=== PATIENT | female | born 1950 | race Caucasian/White ===

== ENCOUNTER 2018-08-05 15:00 | Outpatient (RCR) | payer MEDICARE, OTHER, SELFPAY ==
[2018-07-30 10:38] VITALS: BP 149/68; PULSE 116; RESP 18; TEMP 34.4; BMI 27.4
--- NOTE | 2018-07-30 11:52 | PCM.WC.HP ---
(1) Decubitus ulcer of left heel, unstageable Status: Acute Current Visit: Yes Code(s): L89.620 - Pressure ulcer of left heel, unstageable (2) Fracture of left foot with delayed healing Status: Acute Current Visit: Yes Code(s): S92.902G - Unspecified fracture of left foot, subsequent encounter for fracture with delayed healing (3) Polymyositis associated with autoimmune disease Status: Acute Current Visit: Yes Code(s): M33.20 - Polymyositis, organ involvement unspecified; M35.9 - Systemic involvement of connective tissue, unspecified (4) Diabetes type 2, controlled Status: Chronic Current Visit: Yes Code(s): E11.9 - Type 2 diabetes mellitus without complications History of Present Illness Date of Service: 07/30/18 Chief Complaint: Follow-up on left heel ulcer History of Wound: 67-year-old white female with an autoimmune disorder is on steroids and plasma infusions fell and injured her left shoulder left upper arm humerus and left foot ankle. The fall occurred May [id number] she finally had surgery on June 142018 with plates and screws in the left ankle area she has been casted 3 times and after the last cast has developed a decubitus ulcer on her left heel from pressure. It is crusted it is clean around the edges it is unstageable at this point but hard not Mushy. Past Medical History Past Medical History: Chronic Problems Diabetes type 2, controlled (Chronic) Past Medical History: Left heel decubitus ulcer Allergies/Adverse Reactions: Allergies Penicillins Allergy (Verified 07/30/18 11:13) Hives Sulfa (Sulfonamide Antibiotics) Allergy (Verified 07/30/18 11:13) Hives Review of Systems Constitutional: Denies: Chills, Fever Eyes: Denies: Blurred vision, Drainage, Pain HEENT: Denies: Difficulty Hearing, Difficulty Swallowing, Sore Throat, Visual Changes Cardiovascular: Denies: Chest Pain, Palpitations, Syncope Respiratory: Denies: Cough, Shortness of Breath Gastrointestinal: Denies: Abdominal Pain, Nausea, Vomiting Genitourinary: Denies: Dysuria, Frequency Musculoskeletal: Denies: Joint Pain, Muscle pain Skin: Reports: - - Scab On left heel. Denies: Jaundice, Rash Neurological: Denies: Balance problems, Change in Speech, Difficulty swallowing, Focal weakness Psychiatric: Denies: Anxiety, Depression Endocrine: Denies: Change in Body Habitus Hematologic/ Lymphatic: Denies: Adenopathy - Physical Exam Vital Signs Temp Pulse Resp BP 93.9 F L 116 H 18 149/68 H 07/30/18 10:38 07/30/18 10:38 07/30/18 10:38 07/30/18 10:38 General: Oriented x3, Cooperative, Well developed HEENT: Atraumatic, PERRLA Oral: Moist Mucosa Neck: Supple, No JVD Lungs: Clear to auscultation, Normal air movement Cardiovascular: Regular rate, Regular Rhythm Abdomen: Bowel Sounds Present, Soft, Non Tender, No Hepato-splenomegaly Extremities: No clubbing, No edema, - - Left heel decubitus ulcer unstageable Wound Measurements and Assessment WC - Nurse 1 - General Ulcer Measurement Start: 07/30/18 10:08 Freq: Status: Active Protocol: Activity Type Activity Date Activity User E-Sign Co-Sign Detail Recorded Client Recorded Date Recorded By Document 07/30/18 10:38 DV [id number] 07/30/18 11:11 DV 07/30/18 10:38 Wound Center Nurse 1 [Ulcer Assessment] #1 left heel -Current Size (cm) - Length 3.2 -Current Size (cm) - Width 3.3 -Current Size (cm) - Depth 0.1 -Total Square Cm 10.56 -Date of Last Picture (Recall this 07/30/18 field) -Photo Taken Yes -Epithelialization None Present -Tunneling No -Undermining/Tunneling No -Classification - Thickness Unclassifiable (Eschar Covered ) -Exudate Amt None Present -Wound Margin Distinct, Outline Attached -Granulation Amt None Present (0 %) -Slough/Fibrin No -Necrosis Amt Large (67-100%) -Necrotic Tissue Type Eschar -Structure Exposed None/Limited to Skin Breakdown -Texture (Deepa-wound Skin Appearance) Assessed Localized Edema -Moisture (Deepa-wound Skin Appearance Assessed ) -Color (Deepa-wound Skin Appearance) Assessed -Temperature (Deepa-wound Skin No Abnormality Appearance) (Pt Warm) -Tenderness on Palpation (Deepa-wound Yes Skin Appearance) -Ulcer Cleansing Rinsed/ Irrigated with Saline -Foul Odor after Cleansing No [Edema Assessment] -Right Calf (cm) 33.5 -Right Ankle (cm) 20.7 -Left Calf (cm) 35.5 -Left Ankle (cm) 22.1 WC - Nurse 2 - General Ulcer CM Notes Start: 07/30/18 10:08 Freq: Status: Active Protocol: Activity Type Activity Date Activity User E-Sign Co-Sign Detail Recorded Client Recorded Date Recorded By Document 07/30/18 11:37 MW [id number] 07/30/18 11:41 MW 07/30/18 11:37 Wound Center Nurse 2 [Procedure/Treatment] #1 left heel -Time 11:38 -Correct Patient Yes -Correct Side, Site, Position Yes -Correct Procedure Yes -Procedure Performed Yes -Type of Procedure Debridement -Clinical Debridement Selective -Post Debridement Size (cm) - Length 2.5 -Post Debridement Size (cm) - Width 2.7 -Post Debridement Size (cm) - Depth 0.1 -Total Square Cm 6.75 -Wound/Ulcer Outcome Not Healed -Ulcer Cleansing Rinsed/ Irrigated with Saline -Foul Odor after Cleansing No -Bioengineered Tissue No -Bleeding Controlled with Pressure -Offloading No -Treatment Response Procedure Tolerated Well [See Physician Procedure note for Specifics] Pain Scale: 0-10 Numeric [Pain] -Is Patient Pain Free? Yes Musculoskeletal: No Tenderness to Palpation of Joints or Extremities Lymphatic: No Cervical, Supraclavicular, or Inguinal Adenopathy Neurological: Cranial nerves II-XII grossly intact, Neuro grossly intact Psych/Mental Status: Normal Affect, Appropriate Debridement Note Post-Debridement Measurements/Treatment WC - Nurse 2 - General Ulcer CM Notes Start: 07/30/18 10:08 Freq: Status: Active Protocol: Activity Type Activity Date Activity User E-Sign Co-Sign Detail Recorded Client Recorded Date Recorded By Document 07/30/18 11:37 MW [id number] 07/30/18 11:41 MW 07/30/18 11:37 Wound Center Nurse 2 #1 left heel -Time 11:38 -Correct Patient Yes -Correct Side, Site, Position Yes -Correct Procedure Yes -Procedure Performed Yes -Type of Procedure Debridement -Clinical Debridement Selective -Post Debridement Size (cm) - Length 2.5 -Post Debridement Size (cm) - Width 2.7 -Post Debridement Size (cm) - Depth 0.1 -Total Square Cm 6.75 -Wound/Ulcer Outcome Not Healed -Ulcer Cleansing Rinsed/ Irrigated with Saline -Foul Odor after Cleansing No -Bioengineered Tissue No -Bleeding Controlled with Pressure -Offloading No -Treatment Response Procedure Tolerated Well Pain Scale: 0-10 Numeric Is Patient Pain Free? Yes No debridement was completed today Assessment/Plan Active Problems Decubitus ulcer of left heel, stage 3 (Acute) Decubitus ulcer of left heel, unstageable (Acute) Fracture of left foot with delayed healing (Acute) Polymyositis associated with autoimmune disease (Acute) Diabetes type 2, controlled (Chronic) Assessment: Decubitus ulcer left heel unstageable. Polymyositis. Fractured left ankle Plan: Keep the heel clean and dry use povidone swabs to the scabbed area every day cover with clean gauze double layer Tubigrip follow-up in 1 week with another provider
[2018-08-05 15:06] VITALS: BP 142/60; PULSE 95; RESP 18; TEMP 36.5; BMI 27.4
--- NOTE | 2018-08-11 10:27 | PCM.WC.PN ---
(1) Decubitus ulcer of left heel, unstageable Status: Acute Code(s): L89.620 - Pressure ulcer of left heel, unstageable (2) Fracture of left foot with delayed healing Status: Acute Code(s): S92.902G - Unspecified fracture of left foot, subsequent encounter for fracture with delayed healing (3) Polymyositis associated with autoimmune disease Status: Acute Code(s): M33.20 - Polymyositis, organ involvement unspecified; M35.9 - Systemic involvement of connective tissue, unspecified (4) Diabetes type 2, controlled Status: Chronic Code(s): E11.9 - Type 2 diabetes mellitus without complications Type of Wound Date of Service: 08/05/18 Chief Complaint: Follow-up on left heel ulcer History of Wound: 67-year-old white female with an autoimmune disorder is on steroids and plasma infusions fell and injured her left shoulder left upper arm humerus and left foot ankle. The fall occurred May 312018 she finally had surgery on June 142018 with plates and screws in the left ankle area she has been casted 3 times and after the last cast has developed a decubitus ulcer on her left heel from pressure. It is crusted it is clean around the edges it is unstageable at this point but hard not Mushy. She denies any signs of infection at this time. The patient otherwise denies any fever, chills, nausea, vomiting, shortness of breath, chest pain or pressure, palpitations, orthopnea, lower extremity edema, syncope or presyncopal episodes. Progress of Wound: Courtesy visit as patient states that her insurance does not allow for her to see a nurse practitioner and she can only see a physician. Her pressure ulcer to her left heel continues to be unstageable and she has been utilizing iodine over the site for the past week. Denies any systemic signs of infection at this time. Site is still hard and necrotic no fluctuance on exam. - Physical Exam Vital Signs Temp Pulse Resp BP 97.7 F L 95 18 142/60 H 08/05/18 15:06 08/05/18 15:06 08/05/18 15:06 08/05/18 15:06 General: Alert, Oriented x3, Cooperative, No apparent distress HEENT: Atraumatic Lungs: Clear to auscultation, Normal air movement, No rhonchi, No wheeze, No rales Cardiovascular: Regular rate, Regular Rhythm Extremities: No clubbing, No cyanosis, Edema - Generalized bilateral lower extremity edema Skin: Ulcer/ Wound - Unstageable pressure ulcer to left heel with necrotic tissue present, no erythema, warmth, or fluctuance noted. Neurological: Neuro grossly intact Psych/Mental Status: Normal Affect, Appropriate, Alert and oriented to time, place, person, mood and affect Debridement Note Post-Debridement Measurements/Treatment WC - Nurse 2 - General Ulcer CM Notes Start: 07/30/18 10:08 Freq: Status: Active Protocol: Activity Type Activity Date Activity User E-Sign Co-Sign Detail Recorded Client Recorded Date Recorded By Document 07/30/18 11:37 MW [id number] 07/30/18 11:41 MW Document 08/05/18 15:32 AN [id number] 08/05/18 15:37 AN 07/30/18 08/05/18 11:37 15:32 Wound Center Nurse 2 #1 left heel -Time 11:38 15:36 -Correct Patient Yes Yes -Correct Side, Site, Position Yes Yes -Correct Procedure Yes No -Procedure Performed Yes No -Type of Procedure Debridement -Clinical Debridement Selective -Post Debridement Size (cm) - Length 2.5 0.1 -Post Debridement Size (cm) - Width 2.7 0.1 -Post Debridement Size (cm) - Depth 0.1 0.1 -Total Square Cm 6.75 0.01 -Wound/Ulcer Outcome Not Healed Not Healed -Ulcer Cleansing Rinsed/ Rinsed/ Irrigated with Irrigated with Saline Saline -Foul Odor after Cleansing No No -Bioengineered Tissue No -Bleeding Controlled with Pressure -Offloading No Yes -Type of Offloading Surgical Shoe -Treatment Response Procedure Tolerated Well Pain Scale: 0-10 Numeric Is Patient Pain Free? Yes Yes Wound debrided: Unstageable pressure ulcer to left heel Laterality: Left Type of Debridement: Excisional debridement Anesthesia Used: 5% Lidocaine Gel Depth: in the subcutaneous layer Percentage of wound debrided: 20 Instrument Used: 3mm curette Tissue Removed: Necrotic tissue around the wound edges debrided, still large amount of necr Amount of bleeding with debridement: Mild Bleeding Controlled with: Pressure Patient tolerated procedure well Necrotic edges surrounding the ulceration debrided, still large amount of hard necrotic tissue present in the center. Santyl was recommended to assist with enzymatic debridement Assessment/Plan Assessment: Decubitus ulcer left heel unstageable. Polymyositis. Fractured left ankle Plan: Keep the heel clean and dry use Santyl daily cover with clean gauze double layer Tubigrip follow-up in 1 week with a physician as per patient she states that her insurance will only cover her to see a physician. Code Visit [id number]: [id number] Marilu subq tissue 20 sq cm/<
== END 2018-08-08 23:59 ==
LOC: WC 15:00
PROVIDERS: PCP Internal Medicine; Visit Provider Nurse Practitioner Family
DX: E11.622 Type 2 diabetes mellitus with other skin ulcer (principal); M33.20 Polymyositis, organ involvement unspecified; M35.9 Systemic involvement of connective tissue, unspecified; L89.623 Pressure ulcer of left heel, stage 3
CPT/HCPCS: 97597; 99203; 99213; G0463

== ENCOUNTER 2018-09-02 11:00 | Outpatient (RCR) | payer MEDICARE, OTHER, SELFPAY ==
[2018-08-09 01:42] VITALS: BP 142/60; PULSE 95; RESP 18; TEMP 36.5
[2018-08-12 10:55] VITALS: BP 151/77; PULSE 105; RESP 20; TEMP 36.5; BMI 27.4
--- NOTE | 2018-08-12 12:35 | PN.PCM_ITS ---
(1) Decubitus ulcer of left heel, unstageable Status: Acute Current Visit: No Code(s): L89.620 - Pressure ulcer of left heel, unstageable (2) Delayed wound healing Status: Acute Current Visit: Yes Code(s): T14.8XXD - Other injury of unspecified body region, subsequent encounter (3) Polymyositis associated with autoimmune disease Status: Acute Current Visit: No Code(s): M33.20 - Polymyositis, organ involvement unspecified; M35.9 - Systemic involvement of connective tissue, unspecified (4) Diabetes type 2, controlled Status: Chronic Current Visit: No Code(s): E11.9 - Type 2 diabetes mellitus without complications Type of Wound Chief Complaint: Follow-up on left heel ulcer History of Wound: 67-year-old white female with an autoimmune disorder is on steroids and plasma infusions fell and injured her left shoulder left upper arm humerus and left foot ankle. The fall occurred May [id number] she finally had surgery on June 142018 with plates and screws in the left ankle area she has been casted 3 times and after the last cast has developed a decubitus ulcer on her left heel from pressure. Patient was seen for all of these injuries and surgeries up in [place] and the [facility]. She says she was sent to the wound healing center at request of her primary care physician. Progress of Wound: Ulcer with stable eschar and no surrounding signs of local infection noted to left heel. Patient denies any current feelings of nausea, vomiting, fever, or chills. - Physical Exam Vital Signs Temp Pulse Resp BP 97.7 F L 105 H 20 H 151/77 H 08/12/18 10:55 08/12/18 10:55 08/12/18 10:55 08/12/18 10:55 General: Alert, Oriented x3, Cooperative, No apparent distress Extremities: Capillary Refill Less than 3 Seconds - to distal digits, No Calf Tenderness - negative nura and doyle signs, Diminished Peripheral Pulses - DP pulse palpable and PT pulse nonpalpable, Edema - Minor lower extremity edema Skin: Ulcer/ Wound - Unstageable pressure ulcer with overlying stable eschar to the left posterior heel. There is no bogginess or fluctuance appreciated underlying the eschar at this time. There is no drainage appreciated. There is no surrounding or extending cellulitis or increased warmth to the area or any other signs of local bacterial infection. Wound Measurements and Assessment WC - Nurse 1 - General Ulcer Measurement Start: 08/12/18 10:55 Freq: Status: Active Protocol: Activity Type Activity Date Activity User E-Sign Co-Sign Detail Recorded Client Recorded Date Recorded By Document 08/12/18 10:55 DL [id number] 08/12/18 11:02 DL 08/12/18 10:55 Wound Center Nurse 1 [Ulcer Assessment] #1 left heel -Current Size (cm) - Length 2.5 -Current Size (cm) - Width 2.8 -Current Size (cm) - Depth 0.1 -Total Square Cm 7.00 -Photo Taken No -Exudate Amt None Present -Wound Margin Thickened -Granulation Amt None Present (0 %) -Necrosis Amt Large (67-100%) -Necrotic Tissue Type Eschar -Structure Exposed N/A -Texture (Deepa-wound Skin Appearance) Localized Edema Scarring -Moisture (Deepa-wound Skin Appearance No Abnormality ) -Color (Deepa-wound Skin Appearance) Erythema Rubor -Temperature (Deepa-wound Skin No Abnormality Appearance) (Pt Warm) -Tenderness on Palpation (Deepa-wound Yes Skin Appearance) -Ulcer Cleansing Rinsed/ Irrigated with Saline -Foul Odor after Cleansing No -Anesthetic Used 4% Lidocaine Solution [Edema Assessment] -Left Calf (cm) 32 -Left Ankle (cm) 20 WC - Nurse 2 - General Ulcer CM Notes Start: 08/12/18 10:55 Freq: Status: Active Protocol: Activity Type Activity Date Activity User E-Sign Co-Sign Detail Recorded Client Recorded Date Recorded By Document 08/12/18 12:07 DV [id number] 08/12/18 12:15 DV 08/12/18 12:07 Wound Center Nurse 2 [Procedure/Treatment] #1 left heel -Time 12:08 -Correct Patient Yes -Correct Side, Site, Position Yes -Correct Procedure No -Procedure Performed No -Wound/Ulcer Outcome Not Healed [See Physician Procedure note for Specifics] Pain Scale: 0-10 Numeric [Pain] -Is Patient Pain Free? Yes Musculoskeletal: Tenderness - With manipulation of ulcer site Neurological: Sensory exam intact to light touch and pain Psych/Mental Status: Normal Affect, Appropriate Debridement Note Post-Debridement Measurements/Treatment WC - Nurse 2 - General Ulcer CM Notes Start: 08/12/18 10:55 Freq: Status: Active Protocol: Activity Type Activity Date Activity User E-Sign Co-Sign Detail Recorded Client Recorded Date Recorded By Document 08/12/18 12:07 DV [id number] 08/12/18 12:15 DV 08/12/18 12:07 Wound Center Nurse 2 #1 left heel -Time 12:08 -Correct Patient Yes -Correct Side, Site, Position Yes -Correct Procedure No -Procedure Performed No -Wound/Ulcer Outcome Not Healed Pain Scale: 0-10 Numeric Is Patient Pain Free? Yes No debridement was completed today Assessment/Plan Active Problems Delayed wound healing (Acute) Assessment: Decubitus ulcer left heel unstageable. Polymyositis. Fractured left ankle Plan: Patient was carefully examined and evaluated in great detail. At this time there is a stable eschar overlying the ulcer site. There are currently no signs of infection appreciated as well as no bogginess or fluctuance to the heel. No debridement was completed today. The site was carefully painted with Betadine followed by an offloading dry sterile dressing. The patient is to continue with dressing changes in this manner on a daily basis, in order to keep the area stable and from turning wet. The importance of keeping the left heel offloaded at all times was stressed in great detail with the patient today. She is to be nonweightbearing to the left heel. At all times while seated or laying down the patient is to have the area completely offloaded with nothing by air touching the ulcer site. She says she understands this. LEAS and venous duplex studies were ordered for the patient and we will continue to monitor for those results. We can consider x-rays of the heel in the future if needed. All questions were answered to the patient's satisfaction today. All signs and symptoms of local and systemic infection were discussed with the patient and she was instructed to go to the emergency room immediately should she notice any of these. She is to follow back up at the wound healing center in 1 week to check on progress, but was instructed to follow-up sooner if needed.
[2018-08-19 10:35] VITALS: BP 148/71; PULSE 105; RESP 18; TEMP 36.6; BMI 27.4
--- NOTE | 2018-08-19 13:11 | PCM.WC.PN ---
(1) Decubitus ulcer of left heel, unstageable Status: Acute Current Visit: No Code(s): L89.620 - Pressure ulcer of left heel, unstageable (2) Delayed wound healing Status: Acute Current Visit: Yes Code(s): T14.8XXD - Other injury of unspecified body region, subsequent encounter (3) Polymyositis associated with autoimmune disease Status: Acute Current Visit: No Code(s): M33.20 - Polymyositis, organ involvement unspecified; M35.9 - Systemic involvement of connective tissue, unspecified (4) Diabetes type 2, controlled Status: Chronic Current Visit: No Code(s): E11.9 - Type 2 diabetes mellitus without complications Type of Wound Chief Complaint: Follow-up on left heel ulcer History of Wound: 67-year-old white female with an autoimmune disorder is on steroids and plasma infusions fell and injured her left shoulder left upper arm humerus and left foot ankle. The fall occurred May [id number] she finally had surgery on June 142018 with plates and screws in the left ankle area she has been casted 3 times and after the last cast has developed a decubitus ulcer on her left heel from pressure. Patient was seen for all of these injuries and surgeries up in [place] and the [facility]. She says she was sent to the wound healing center at request of her primary care physician. Progress of Wound: Ulcer stable this week with no surrounding signs of local infection noted to left heel. Patient denies any current feelings of nausea, vomiting, fever, or chills. - Physical Exam Vital Signs Temp Pulse Resp BP 97.8 F 105 H 18 148/71 H 08/19/18 10:35 08/19/18 10:35 08/19/18 10:35 08/19/18 10:35 General: Alert, Oriented x3, Cooperative, No apparent distress Extremities: Capillary Refill Less than 3 Seconds, No Calf Tenderness - Negative Shay and Rankin signs, Diminished Peripheral Pulses - DP pulse palpable and PT pulse nonpalpable, Edema - Minor lower extremity edema Skin: Ulcer/ Wound - Unstageable pressure ulcer with overlying stable eschar to the left posterior heel. There is no bogginess or fluctuance appreciated underlying the eschar at this time. There is no drainage appreciated. There is no surrounding or extending cellulitis or increased warmth to the area or any other signs of local bacterial infection. Wound Measurements and Assessment WC - Nurse 1 - General Ulcer Measurement Start: 08/12/18 10:55 Freq: Status: Active Protocol: Activity Type Activity Date Activity User E-Sign Co-Sign Detail Recorded Client Recorded Date Recorded By Document 08/19/18 10:35 DL [id number] 08/19/18 10:44 DL 08/19/18 10:35 Wound Center Nurse 1 [Ulcer Assessment] #1 left heel -Current Size (cm) - Length 2 -Current Size (cm) - Width 2.8 -Current Size (cm) - Depth 0.1 -Total Square Cm 5.6 -Photo Taken No -Exudate Amt None Present -Wound Margin Thickened -Granulation Amt None Present (0 %) -Necrosis Amt Large (67-100%) -Necrotic Tissue Type Eschar -Structure Exposed N/A -Texture (Deepa-wound Skin Appearance) Localized Edema Scarring -Moisture (Deepa-wound Skin Appearance Dry/Scaly ) -Color (Deepa-wound Skin Appearance) Hemosiderin Staining -Temperature (Deepa-wound Skin No Abnormality Appearance) (Pt Warm) -Tenderness on Palpation (Deepa-wound No Skin Appearance) -Ulcer Cleansing Wound Cleanser -Foul Odor after Cleansing No -Anesthetic Used 5% Lidocaine Gel [Edema Assessment] -Left Calf (cm) 34 -Left Ankle (cm) 20.7 WC - Nurse 2 - General Ulcer CM Notes Start: 08/12/18 10:55 Freq: Status: Active Protocol: Activity Type Activity Date Activity User E-Sign Co-Sign Detail Recorded Client Recorded Date Recorded By Document 08/19/18 11:03 DV [id number] 08/19/18 11:05 DV 08/19/18 11:03 Wound Center Nurse 2 [Procedure/Treatment] #1 left heel -Time 11:03 -Correct Patient Yes -Correct Side, Site, Position Yes -Correct Procedure No -Procedure Performed No -Wound/Ulcer Outcome Not Healed [See Physician Procedure note for Specifics] Pain Scale: 0-10 Numeric [Pain] -Is Patient Pain Free? Yes Musculoskeletal: Tenderness - With manipulation of ulcer site Neurological: Sensory exam intact to light touch and pain Psych/Mental Status: Normal Affect, Appropriate Debridement Note Post-Debridement Measurements/Treatment WC - Nurse 2 - General Ulcer CM Notes Start: 08/12/18 10:55 Freq: Status: Active Protocol: Activity Type Activity Date Activity User E-Sign Co-Sign Detail Recorded Client Recorded Date Recorded By Document 08/12/18 12:07 DV [id number] 08/12/18 12:15 DV Document 08/19/18 11:03 DV [id number] 08/19/18 11:05 DV 08/12/18 08/19/18 12:07 11:03 Wound Center Nurse 2 #1 left heel -Time 12:08 11:03 -Correct Patient Yes Yes -Correct Side, Site, Position Yes Yes -Correct Procedure No No -Procedure Performed No No -Wound/Ulcer Outcome Not Healed Not Healed Pain Scale: 0-10 Numeric Is Patient Pain Free? Yes Yes No debridement was completed today Assessment/Plan Active Problems Delayed wound healing (Acute) Assessment: Decubitus ulcer left heel unstageable. Polymyositis. Fractured left ankle Plan: Patient was carefully examined and evaluated in great detail again today. At this time there is a stable eschar overlying the ulcer site. There are currently no signs of infection appreciated as well as no bogginess or fluctuance to the heel. A tissue nipper was used to carefully remove a very small amount of loosened eschar circumferentially around the ulcer site. No significant debridement performed today. The site was carefully painted with Betadine followed by an offloading dry sterile dressing. The patient is to continue with dressing changes in this manner on a daily basis, in order to keep the area stable and from turning wet. The importance of keeping the left heel offloaded at all times was stressed in great detail with the patient today. She is to be nonweightbearing to the left heel. At all times while seated or laying down the patient is to have the area completely offloaded with nothing by air touching the ulcer site. She says she understands this. LEAS and venous duplex studies were ordered for the patient and we will continue to monitor for those results. She says she had to call to push the studies back due to a conflicting doctor appointment. She says she will call to have this rescheduled. We can consider x-rays of the heel in the future if needed. All questions were answered to the patient's satisfaction today. All signs and symptoms of local and systemic infection were discussed with the patient and she was instructed to go to the emergency room immediately should she notice any of these. She is to follow back up at the wound healing center in 1 week to check on progress, but was instructed to follow-up sooner if needed.
--- NOTE | 2018-08-19 13:14 | PN.PCM_ITS ---
(1) Decubitus ulcer of left heel, unstageable Status: Acute Current Visit: No Code(s): L89.620 - Pressure ulcer of left heel, unstageable (2) Delayed wound healing Status: Acute Current Visit: Yes Code(s): T14.8XXD - Other injury of unspecified body region, subsequent encounter (3) Polymyositis associated with autoimmune disease Status: Acute Current Visit: No Code(s): M33.20 - Polymyositis, organ involvement unspecified; M35.9 - Systemic involvement of connective tissue, unspecified (4) Diabetes type 2, controlled Status: Chronic Current Visit: No Code(s): E11.9 - Type 2 diabetes mellitus without complications Type of Wound Chief Complaint: Follow-up on left heel ulcer History of Wound: 67-year-old white female with an autoimmune disorder is on steroids and plasma infusions fell and injured her left shoulder left upper arm humerus and left foot ankle. The fall occurred May [id number] she finally had surgery on June 142018 with plates and screws in the left ankle area she has been casted 3 times and after the last cast has developed a decubitus ulcer on her left heel from pressure. Patient was seen for all of these injuries and surgeries up in [place] and the [facility]. She says she was sent to the wound healing center at request of her primary care physician. Progress of Wound: Ulcer stable this week with no surrounding signs of local infection noted to left heel. Patient denies any current feelings of nausea, vomiting, fever, or chills. - Physical Exam Vital Signs Temp Pulse Resp BP 97.8 F 105 H 18 148/71 H 08/19/18 10:35 08/19/18 10:35 08/19/18 10:35 08/19/18 10:35 General: Alert, Oriented x3, Cooperative, No apparent distress Extremities: Capillary Refill Less than 3 Seconds, No Calf Tenderness - Negative Shay and Rankin signs, Diminished Peripheral Pulses - DP pulse palpable and PT pulse nonpalpable, Edema - Minor lower extremity edema Skin: Ulcer/ Wound - Unstageable pressure ulcer with overlying stable eschar to the left posterior heel. There is no bogginess or fluctuance appreciated underlying the eschar at this time. There is no drainage appreciated. There is no surrounding or extending cellulitis or increased warmth to the area or any other signs of local bacterial infection. Wound Measurements and Assessment WC - Nurse 1 - General Ulcer Measurement Start: 08/12/18 10:55 Freq: Status: Active Protocol: Activity Type Activity Date Activity User E-Sign Co-Sign Detail Recorded Client Recorded Date Recorded By Document 08/19/18 10:35 DL [id number] 08/19/18 10:44 DL 08/19/18 10:35 Wound Center Nurse 1 [Ulcer Assessment] #1 left heel -Current Size (cm) - Length 2 -Current Size (cm) - Width 2.8 -Current Size (cm) - Depth 0.1 -Total Square Cm 5.6 -Photo Taken No -Exudate Amt None Present -Wound Margin Thickened -Granulation Amt None Present (0 %) -Necrosis Amt Large (67-100%) -Necrotic Tissue Type Eschar -Structure Exposed N/A -Texture (Deepa-wound Skin Appearance) Localized Edema Scarring -Moisture (Deepa-wound Skin Appearance Dry/Scaly ) -Color (Deepa-wound Skin Appearance) Hemosiderin Staining -Temperature (Deepa-wound Skin No Abnormality Appearance) (Pt Warm) -Tenderness on Palpation (Deepa-wound No Skin Appearance) -Ulcer Cleansing Wound Cleanser -Foul Odor after Cleansing No -Anesthetic Used 5% Lidocaine Gel [Edema Assessment] -Left Calf (cm) 34 -Left Ankle (cm) 20.7 WC - Nurse 2 - General Ulcer CM Notes Start: 08/12/18 10:55 Freq: Status: Active Protocol: Activity Type Activity Date Activity User E-Sign Co-Sign Detail Recorded Client Recorded Date Recorded By Document 08/19/18 11:03 DV [id number] 08/19/18 11:05 DV 08/19/18 11:03 Wound Center Nurse 2 [Procedure/Treatment] #1 left heel -Time 11:03 -Correct Patient Yes -Correct Side, Site, Position Yes -Correct Procedure No -Procedure Performed No -Wound/Ulcer Outcome Not Healed [See Physician Procedure note for Specifics] Pain Scale: 0-10 Numeric [Pain] -Is Patient Pain Free? Yes Musculoskeletal: Tenderness - With manipulation of ulcer site Neurological: Sensory exam intact to light touch and pain Psych/Mental Status: Normal Affect, Appropriate Debridement Note Post-Debridement Measurements/Treatment WC - Nurse 2 - General Ulcer CM Notes Start: 08/12/18 10:55 Freq: Status: Active Protocol: Activity Type Activity Date Activity User E-Sign Co-Sign Detail Recorded Client Recorded Date Recorded By Document 08/12/18 12:07 DV [id number] 08/12/18 12:15 DV Document 08/19/18 11:03 DV [id number] 08/19/18 11:05 DV 08/12/18 08/19/18 12:07 11:03 Wound Center Nurse 2 #1 left heel -Time 12:08 11:03 -Correct Patient Yes Yes -Correct Side, Site, Position Yes Yes -Correct Procedure No No -Procedure Performed No No -Wound/Ulcer Outcome Not Healed Not Healed Pain Scale: 0-10 Numeric Is Patient Pain Free? Yes Yes No debridement was completed today Assessment/Plan Active Problems Delayed wound healing (Acute) Assessment: Decubitus ulcer left heel unstageable. Polymyositis. Fractured left ankle Plan: Patient was carefully examined and evaluated in great detail again today. At this time there is a stable eschar overlying the ulcer site. There are currently no signs of infection appreciated as well as no bogginess or fluctuance to the heel. A tissue nipper was used to carefully remove a very small amount of loosened eschar circumferentially around the ulcer site. No significant debridement performed today. The site was carefully painted with Betadine followed by an offloading dry sterile dressing. The patient is to continue with dressing changes in this manner on a daily basis, in order to keep the area stable and from turning wet. The importance of keeping the left heel offloaded at all times was stressed in great detail with the patient today. She is to be nonweightbearing to the left heel. At all times while seated or laying down the patient is to have the area completely offloaded with nothing by air touching the ulcer site. She says she understands this. LEAS and venous duplex studies were ordered for the patient and we will continue to monitor for those results. She says she had to call to push the studies back due to a conflicting doctor appointment. She says she will call to have this rescheduled. We can consider x-rays of the heel in the future if needed. All questions were answered to the patient's satisfaction today. All signs and symptoms of local and systemic infection were discussed with the patient and she was instructed to go to the emergency room immediately should she notice any of these. She is to follow back up at the wound healing center in 1 week to check on progress, but was instructed to follow-up sooner if needed.
[2018-09-02 11:19] VITALS: BP 125/69; PULSE 86; RESP 18; TEMP 36.4; BMI 27.4
--- NOTE | 2018-09-02 13:32 | PCM.WC.PN ---
(1) Decubitus ulcer of left heel, unstageable Status: Acute Current Visit: No Code(s): L89.620 - Pressure ulcer of left heel, unstageable (2) Delayed wound healing Status: Acute Current Visit: Yes Code(s): T14.8XXD - Other injury of unspecified body region, subsequent encounter (3) Polymyositis associated with autoimmune disease Status: Acute Current Visit: No Code(s): M33.20 - Polymyositis, organ involvement unspecified; M35.9 - Systemic involvement of connective tissue, unspecified (4) Diabetes type 2, controlled Status: Chronic Current Visit: No Code(s): E11.9 - Type 2 diabetes mellitus without complications Type of Wound Chief Complaint: Follow-up on left heel ulcer History of Wound: 67-year-old white female with an autoimmune disorder is on steroids and plasma infusions fell and injured her left shoulder left upper arm humerus and left foot ankle. The fall occurred May [id number] she finally had surgery on June 142018 with plates and screws in the left ankle area she has been casted 3 times and after the last cast has developed a decubitus ulcer on her left heel from pressure. Patient was seen for all of these injuries and surgeries up in [place] and the [facility]. She says she was sent to the wound healing center at request of her primary care physician. Progress of Wound: Ulcer stable again this week with no surrounding signs of local infection noted to left heel. Patient denies any current feelings of nausea, vomiting, fever, or chills. - Physical Exam Vital Signs Temp Pulse Resp BP 97.6 F L 86 18 125/69 H 09/02/18 11:19 09/02/18 11:19 09/02/18 11:19 09/02/18 11:19 General: Alert, Oriented x3, Cooperative, No apparent distress Extremities: Capillary Refill Less than 3 Seconds, No Calf Tenderness - Negative Shay and Rankin signs, Diminished Peripheral Pulses - DP pulse palpable and PT pulse nonpalpable, Edema - Minor lower extremity edema Skin: Ulcer/ Wound - Unstageable pressure ulcer with overlying stable eschar to the left posterior heel. There is no bogginess or fluctuance appreciated underlying the eschar at this time. There is no drainage appreciated. There is no surrounding or extending cellulitis or increased warmth to the area or any other signs of local bacterial infection. Wound Measurements and Assessment WC - Nurse 1 - General Ulcer Measurement Start: 08/12/18 10:55 Freq: Status: Active Protocol: Activity Type Activity Date Activity User E-Sign Co-Sign Detail Recorded Client Recorded Date Recorded By Document 09/02/18 11:19 DL [id number] 09/02/18 11:29 DL 09/02/18 11:19 Wound Center Nurse 1 [Ulcer Assessment] #1 left heel -Current Size (cm) - Length 1.7 -Current Size (cm) - Width 2.4 -Current Size (cm) - Depth 0.2 -Total Square Cm 4.08 -Photo Taken No -Exudate Amt None Present -Wound Margin Thickened -Granulation Amt None Present (0 %) -Necrosis Amt Large (67-100%) -Necrotic Tissue Type Eschar -Structure Exposed N/A -Texture (Deepa-wound Skin Appearance) Localized Edema Scarring -Moisture (Deepa-wound Skin Appearance Dry/Scaly ) -Color (Deepa-wound Skin Appearance) Hemosiderin Staining -Temperature (Deepa-wound Skin No Abnormality Appearance) (Pt Warm) -Tenderness on Palpation (Deepa-wound No Skin Appearance) -Ulcer Cleansing Rinsed/ Irrigated with Saline -Foul Odor after Cleansing No -Anesthetic Used 4% Lidocaine Solution [Edema Assessment] -Left Calf (cm) 32.5 -Left Ankle (cm) 19.8 WC - Nurse 2 - General Ulcer CM Notes Start: 08/12/18 10:55 Freq: Status: Active Protocol: Activity Type Activity Date Activity User E-Sign Co-Sign Detail Recorded Client Recorded Date Recorded By Document 09/02/18 12:18 DV [id number] 09/02/18 12:19 DV 09/02/18 12:18 Wound Center Nurse 2 [Procedure/Treatment] #1 left heel -Time 12:19 -Correct Patient Yes -Correct Side, Site, Position Yes -Correct Procedure No -Procedure Performed No -Wound/Ulcer Outcome Not Healed [See Physician Procedure note for Specifics] Pain Scale: 0-10 Numeric [Pain] -Is Patient Pain Free? Yes Musculoskeletal: Tenderness - Some tenderness with manipulation of ulcer site Neurological: Sensory exam intact to light touch and pain Psych/Mental Status: Normal Affect, Appropriate Debridement Note Post-Debridement Measurements/Treatment WC - Nurse 2 - General Ulcer CM Notes Start: 08/12/18 10:55 Freq: Status: Active Protocol: Activity Type Activity Date Activity User E-Sign Co-Sign Detail Recorded Client Recorded Date Recorded By Document 08/12/18 12:07 DV [id number] 08/12/18 12:15 DV Document 08/19/18 11:03 DV [id number] 08/19/18 11:05 DV Document 09/02/18 12:18 DV [id number] 09/02/18 12:19 DV 08/12/18 08/19/18 09/02/18 12:07 11:03 12:18 Wound Center Nurse 2 #1 left heel -Time 12:08 11:03 12:19 -Correct Patient Yes Yes Yes -Correct Side, Site, Position Yes Yes Yes -Correct Procedure No No No -Procedure Performed No No No -Wound/Ulcer Outcome Not Healed Not Healed Not Healed Pain Scale: 0-10 Numeric Is Patient Pain Free? Yes Yes Yes No debridement was completed today Assessment/Plan Active Problems Delayed wound healing (Acute) Assessment: Decubitus ulcer left heel unstageable. Polymyositis. Fractured left ankle Plan: Patient was carefully examined and evaluated in great detail again today. At this time there is a stable eschar overlying the ulcer site. There remain no signs of infection appreciated as well as no bogginess or fluctuance to the heel. A tissue nipper was used to carefully remove a very small amount of loosened eschar circumferentially around the ulcer site again today. No significant or aggressive debridement performed today. The site was carefully painted with Betadine followed by an offloading dry sterile dressing. The patient is to continue with dressing changes in this manner on a daily basis, in order to keep the area stable and from turning wet. The importance of keeping the left heel offloaded at all times was stressed in great detail with the patient today. She is to be nonweightbearing to the left heel. At all times while seated or laying down the patient is to have the area completely offloaded with nothing by air touching the ulcer site. She says she understands this. LEAS and venous duplex studies were ordered for the patient and we will continue to monitor for those results. She says she had to call to push the studies back due to a conflicting doctor appointment and has her appointment rescheduled for next week. We can consider x-rays of the heel in the future if needed. All questions were answered to the patient's satisfaction today. All signs and symptoms of local and systemic infection were discussed with the patient and she was instructed to go to the emergency room immediately should she notice any of these. She is to follow back up at the wound healing center in 1 week to check on progress, but was instructed to follow-up sooner if needed.
== END 2018-09-07 23:59 ==
LOC: WC 11:00
PROVIDERS: Family Provider Internal Medicine; PCP Internal Medicine; Referring Provider Nurse Practitioner Family; Visit Provider Podiatrist
DX: E11.622 Type 2 diabetes mellitus with other skin ulcer (principal); M33.20 Polymyositis, organ involvement unspecified; Z79.52 Long term (current) use of systemic steroids; L89.620 Pressure ulcer of left heel, unstageable
CPT/HCPCS: 99213; 99214; G0463

== ENCOUNTER 2018-10-07 11:00 | Outpatient (RCR) | payer MEDICARE, OTHER, SELFPAY ==
[2018-09-08 01:39] VITALS: BP 125/69; PULSE 86; RESP 18; TEMP 36.4
--- NOTE | 2018-09-09 09:03 | VDLE_ITS ---
Reason For Study: pain and swelling RIGHT LEFT CFV is compressible, spontaneous, phasic, CFV is compressible, spontaneous, phasic, competent and demonstrates normal competent, and demonstrates normal augmentation. augmentation. FV is compressible, spontaneous, phasic, FV is compressible, spontaneous, phasic, competent and demonstrates normal competent and demonstrates normal augmentation. augmentation. POP V is compressible, spontaneous, phasic, POP V is compressible, spontaneous, phasic, competent and demonstrates normal competent and demonstrates normal augmentation. augmentation. T/P Trunk is compressible. T/P Trunk is compressible. PTV is compressible. PTV is compressible. RT PerV is compressible. LT PerV is compressible. S-F Junction is competent. S-F Junction is competent.. GSV is competent. GSV is competent above the knee, but SSV is competent. incompetent below the knee for greater Procedure than .5 seconds. GSV measures .28 x .34 cm. Exam performed in department. SSV is competent. The exam was diagnostic. Patient was scanned in reverse Trendelenburg position during reflux assessment. Interpretation Summary Deep veins of the lower extremities are bilaterally patent and compressible segmentally. There is no evidence of deep vein thrombosis on either side. Valvular competence appears intact within the proximal deep venous systems bilaterally. The greater saphenous veins appear bilaterally patent and compressible segmentally. Sapheno-femoral junctions are bilaterally competent . The right greater saphenous vein appears segmentally competent. The left greater saphenous vein appears competent above the knee. The left greater saphenous vein appears incompetent below the knee. Small saphenous veins are patent and competent bilaterally. Ordering Physician: Viral Zavala Performed By: Timur Gaona RVT
--- NOTE | 2018-09-09 09:03 | ART_ITS ---
Reason For Study: pain, swelling, heel ulcer Left Segmental Pressures Left brachial= 137mmHg. Left posterior tibial artery = 219mmHg. The left dorsalis pedis waveforms are triphasic. The left posterior tibial artery waveforms are triphasic. DP is noncompressible. Right Segmental Pressures Right brachial= 127mmHg. The right dorsalis pedis waveforms are triphasic. The right posterior tibial artery waveforms are triphasic. Right digit = 143 mmHg. PT and DP are noncompressible. Indices The right digital-brachial index is 1.04. The right ankle brachial index is noncompressible. The left digital-brachial index is 1.04. The left ankle brachial index by the posterior tibial artery is 1.6. Interpretation Summary Triphasic Doppler waveforms are noted at ankle level bilaterally. Pulse-volume recording waveform amplitudes appear satisfactory at all levels bilaterally, including low-thigh, calf, ankle, and digital levels. The resting right ankle-brachial index could not be determined due to the non- compressibility of the vasculature. The resting left ankle-brachial index is supra-normal. Digital- brachial indices are normal bilaterally. There is evidence of arterial calcification in the lower extremities bilaterally, but no evidence of significant arterial occlusive disease on either side. Ordering Physician: Viral Zavala Performed By: ARTUR MAY T
[2018-09-09 11:08] VITALS: BP 119/76; PULSE 81; TEMP 36.4
--- NOTE | 2018-09-09 12:42 | PN.PCM_ITS ---
(1) Decubitus ulcer of left heel, unstageable Status: Acute Current Visit: No Code(s): L89.620 - Pressure ulcer of left heel, unstageable (2) Polymyositis associated with autoimmune disease Status: Acute Current Visit: No Code(s): M33.20 - Polymyositis, organ involvement unspecified; M35.9 - Systemic involvement of connective tissue, unspecified (3) Diabetes type 2, controlled Status: Chronic Current Visit: No Code(s): E11.9 - Type 2 diabetes mellitus without complications (4) Delayed wound healing Status: Acute Current Visit: No Code(s): T14.8XXD - Other injury of unspecified body region, subsequent encounter Type of Wound Chief Complaint: Follow-up on left heel ulcer History of Wound: 67-year-old white female with an autoimmune disorder is on steroids and plasma infusions fell and injured her left shoulder left upper arm humerus and left foot ankle. The fall occurred May [id number] she finally had surgery on June 142018 with plates and screws in the left ankle area she has been casted 3 times and after the last cast has developed a decubitus ulcer on her left heel from pressure. Patient was seen for all of these injuries and surgeries up in [place] and the [facility]. She says she was sent to the wound healing center at request of her primary care physician. Progress of Wound: Ulcer remains stable this week with no surrounding signs of local infection noted to left heel. Patient denies any current feelings of nausea, vomiting, fever, or chills. - Physical Exam Vital Signs Temp Pulse Resp BP 97.5 F L 81 18 119/76 09/09/18 11:08 09/09/18 11:08 09/08/18 01:39 09/09/18 11:08 General: Alert, Oriented x3, Cooperative, No apparent distress Extremities: Capillary Refill Less than 3 Seconds, No Calf Tenderness - Negative Shay and Rankin signs, Diminished Peripheral Pulses - DP pulse palpable and PT pulse nonpalpable, Edema - Minor lower extremity edema Skin: Ulcer/ Wound - Unstageable pressure ulcer with overlying stable eschar to the left posterior heel. There is no bogginess or fluctuance appreciated underlying the eschar at this time. There is no drainage appreciated. There is no surrounding or extending cellulitis or increased warmth to the area or any other signs of local bacterial infection. Wound Measurements and Assessment WC - Nurse 1 - General Ulcer Measurement Start: 09/09/18 11:08 Freq: Status: Active Protocol: Activity Type Activity Date Activity User E-Sign Co-Sign Detail Recorded Client Recorded Date Recorded By Document 09/09/18 11:08 ALTON [id number] 09/09/18 11:30 DL 09/09/18 11:08 Wound Center Nurse 1 [Ulcer Assessment] #1 left heel -Current Size (cm) - Length 1.6 -Current Size (cm) - Width 2.2 -Current Size (cm) - Depth 0.1 -Total Square Cm 3.52 -Photo Taken No -Exudate Amt None Present -Wound Margin Thickened -Granulation Amt None Present (0 %) -Necrosis Amt Large (67-100%) -Necrotic Tissue Type Eschar -Structure Exposed N/A -Texture (Deepa-wound Skin Appearance) Scarring -Moisture (Deepa-wound Skin Appearance No Abnormality ) -Color (Deepa-wound Skin Appearance) Rubor -Temperature (Deepa-wound Skin No Abnormality Appearance) (Pt Warm) -Tenderness on Palpation (Deepa-wound No Skin Appearance) -Ulcer Cleansing Rinsed/ Irrigated with Saline -Foul Odor after Cleansing No -Anesthetic Used 4% Lidocaine Solution [Edema Assessment] -Left Calf (cm) 33.4 -Left Ankle (cm) 20.5 Musculoskeletal: Tenderness - Some tenderness with manipulation of ulcer site Neurological: Sensory exam intact to light touch and pain Psych/Mental Status: Normal Affect, Appropriate Debridement Note No debridement was completed today Assessment/Plan Assessment: Decubitus ulcer left heel unstageable. Polymyositis. Fractured left ankle Plan: Patient was carefully examined and evaluated in great detail again today. Stable eschar overlying the ulcer site. There remain no signs of infection appreciated as well as no bogginess or fluctuance to the heel. A tissue nipper was used to carefully remove a very small amount of loosened eschar circumferentially around the ulcer site again today. No significant or aggressive debridement performed today. The site was carefully painted with Betadine followed by an offloading dry sterile dressing. The patient is to continue with dressing changes in this manner on a daily basis, in order to keep the area stable and from turning wet. The importance of keeping the left heel offloaded at all times was stressed in great detail with the patient today. She is to be nonweightbearing to the left heel. At all times while seated or laying down the patient is to have the area completely offloaded with nothing by air touching the ulcer site. She says she understands this. LEAS and venous duplex studies were completed just prior to her visit at the wound center today. We will continue to monitor for results from these. Consider vascular referral. We can consider x-rays of the heel in the future if needed. All questions were answered to the patient's satisfaction today. All signs and symptoms of local and systemic infection were discussed with the patient and she was instructed to go to the emergency room immediately should she notice any of these. She is to follow back up at the wound healing center in 1 week to check on progress, but was instructed to follow-up sooner if needed.
[2018-09-16 11:25] VITALS: BP 135/84; PULSE 118; RESP 18; BMI 27.4
--- NOTE | 2018-09-16 14:15 | PCM.WC.PN ---
(1) Decubitus ulcer of left heel, unstageable Status: Acute Current Visit: No Code(s): L89.620 - Pressure ulcer of left heel, unstageable (2) Polymyositis associated with autoimmune disease Status: Acute Current Visit: No Code(s): M33.20 - Polymyositis, organ involvement unspecified; M35.9 - Systemic involvement of connective tissue, unspecified (3) Diabetes type 2, controlled Status: Chronic Current Visit: No Code(s): E11.9 - Type 2 diabetes mellitus without complications (4) Delayed wound healing Status: Acute Current Visit: No Code(s): T14.8XXD - Other injury of unspecified body region, subsequent encounter Type of Wound Chief Complaint: Follow-up on left heel ulcer History of Wound: 67-year-old white female with an autoimmune disorder is on steroids and plasma infusions fell and injured her left shoulder left upper arm humerus and left foot ankle. The fall occurred May [id number] she finally had surgery on June 142018 with plates and screws in the left ankle area she has been casted 3 times and after the last cast has developed a decubitus ulcer on her left heel from pressure. Patient was seen for all of these injuries and surgeries up in [place] and the [facility]. She says she was sent to the wound healing center at request of her primary care physician. Progress of Wound: Ulcer remains stable. No signs of local infection noted to left heel. Patient denies any current feelings of nausea, vomiting, fever, or chills. - Physical Exam Vital Signs Temp Pulse Resp BP 97.5 F L 118 H 18 135/84 H 09/09/18 11:08 09/16/18 11:25 09/16/18 11:25 09/16/18 11:25 General: Alert, Oriented x3, Cooperative, No apparent distress Extremities: Capillary Refill Less than 3 Seconds, No Calf Tenderness - Negative Shay and Rankin signs, Diminished Peripheral Pulses - DP pulse palpable and PT pulse nonpalpable, Edema - Minor lower extremity edema Skin: Ulcer/ Wound - Unstageable pressure ulcer with overlying stable eschar to the left posterior heel. There is no bogginess or fluctuance appreciated underlying the eschar at this time. There is no drainage appreciated. There is no surrounding or extending cellulitis or increased warmth to the area or any other signs of local bacterial infection. Wound Measurements and Assessment WC - Nurse 1 - General Ulcer Measurement Start: 09/09/18 11:08 Freq: Status: Active Protocol: Activity Type Activity Date Activity User E-Sign Co-Sign Detail Recorded Client Recorded Date Recorded By Document 09/16/18 11:25 AL [id number] 09/16/18 11:31 AL 09/16/18 11:25 Wound Center Nurse 1 [Ulcer Assessment] #1 left heel -Current Size (cm) - Length 0.1 -Current Size (cm) - Width 0.1 -Current Size (cm) - Depth 0.1 -Total Square Cm 0.01 -Texture (Deepa-wound Skin Appearance) Assessed Callus -Moisture (Deepa-wound Skin Appearance Assessed ) -Color (Deepa-wound Skin Appearance) Assessed -Temperature (Deepa-wound Skin No Abnormality Appearance) (Pt Warm) -Tenderness on Palpation (Deepa-wound No Skin Appearance) -Ulcer Cleansing Wound Cleanser -Foul Odor after Cleansing No -Anesthetic Used 4% Lidocaine Solution [Edema Assessment] -Left Calf (cm) 33 -Left Ankle (cm) 22 WC - Nurse 2 - General Ulcer CM Notes Start: 09/09/18 11:08 Freq: Status: Active Protocol: Activity Type Activity Date Activity User E-Sign Co-Sign Detail Recorded Client Recorded Date Recorded By Document 09/16/18 12:06 [id number] 09/16/18 12:11 09/16/18 12:06 Wound Center Nurse 2 [Procedure/Treatment] #1 left heel -Time 12:11 -Correct Patient Yes -Correct Side, Site, Position Yes -Correct Procedure Yes -Procedure Performed No -Type of Procedure Debridement -Clinical Debridement Subcutaneous -Post Debridement Size (cm) - Length 0.1 -Post Debridement Size (cm) - Width 0.1 -Post Debridement Size (cm) - Depth 0.1 -Total Square Cm 0.01 -Wound/Ulcer Outcome Not Healed -Ulcer Cleansing Rinsed/ Irrigated with Saline -Foul Odor after Cleansing No -Bioengineered Tissue No [See Physician Procedure note for Specifics] Pain Scale: 0-10 Numeric [Pain] -Is Patient Pain Free? Yes Musculoskeletal: Tenderness - Minor tenderness with manipulation of ulcer site Neurological: Sensory exam intact to light touch and pain Psych/Mental Status: Normal Affect, Appropriate Debridement Note Post-Debridement Measurements/Treatment WC - Nurse 2 - General Ulcer CM Notes Start: 09/09/18 11:08 Freq: Status: Active Protocol: Activity Type Activity Date Activity User E-Sign Co-Sign Detail Recorded Client Recorded Date Recorded By Document 09/16/18 12:06 KATERINA [id number] 09/16/18 12:11 AN 09/16/18 12:06 Wound Center Nurse 2 #1 left heel -Time 12:11 -Correct Patient Yes -Correct Side, Site, Position Yes -Correct Procedure Yes -Procedure Performed No -Type of Procedure Debridement -Clinical Debridement Subcutaneous -Post Debridement Size (cm) - Length 0.1 -Post Debridement Size (cm) - Width 0.1 -Post Debridement Size (cm) - Depth 0.1 -Total Square Cm 0.01 -Wound/Ulcer Outcome Not Healed -Ulcer Cleansing Rinsed/ Irrigated with Saline -Foul Odor after Cleansing No -Bioengineered Tissue No Pain Scale: 0-10 Numeric Is Patient Pain Free? Yes No debridement was completed today Assessment/Plan Assessment: Decubitus ulcer left heel unstageable. Polymyositis. Fractured left ankle Plan: Patient was carefully examined and evaluated in great detail again today. Stable eschar overlying the ulcer site. There continue to be no signs of infection appreciated as well as no bogginess or fluctuance to the heel. A tissue nipper was used to carefully remove a very small amount of loosened eschar circumferentially around the ulcer site again today. No aggressive debridement performed today. The site was carefully painted with Betadine followed by an offloading dry sterile dressing. The patient is to continue with dressing changes in this manner on a daily basis, in order to keep the area stable and from turning wet. The importance of keeping the left heel offloaded at all times was stressed in great detail with the patient today. She is to be nonweightbearing to the left heel. At all times while seated or laying down the patient is to have the area completely offloaded with nothing by air touching the ulcer site. She says she understands this. LEAS and venous duplex studies were reviewed today and the patient will be referred for vascular consult to see if there is need for any further work-up at this time. Patient would like to do this at the [facility] and says that she will contact her primary care doctor in order to set this up and be referred. We can consider x-rays of the heel in the future if needed. All questions were answered to the patient's satisfaction today. All signs and symptoms of local and systemic infection were discussed with the patient and she was instructed to go to the emergency room immediately should she notice any of these. She is to follow back up at the wound healing center in 1 week to check on progress, but was instructed to follow-up sooner if needed.
--- NOTE | 2018-09-16 14:19 | PN.PCM_ITS ---
(1) Decubitus ulcer of left heel, unstageable Status: Acute Current Visit: No Code(s): L89.620 - Pressure ulcer of left heel, unstageable (2) Polymyositis associated with autoimmune disease Status: Acute Current Visit: No Code(s): M33.20 - Polymyositis, organ involvement unspecified; M35.9 - Systemic involvement of connective tissue, unspecified (3) Diabetes type 2, controlled Status: Chronic Current Visit: No Code(s): E11.9 - Type 2 diabetes mellitus without complications (4) Delayed wound healing Status: Acute Current Visit: No Code(s): T14.8XXD - Other injury of unspecified body region, subsequent encounter Type of Wound Chief Complaint: Follow-up on left heel ulcer History of Wound: 67-year-old white female with an autoimmune disorder is on steroids and plasma infusions fell and injured her left shoulder left upper arm humerus and left foot ankle. The fall occurred May [id number] she finally had surgery on June 142018 with plates and screws in the left ankle area she has been casted 3 times and after the last cast has developed a decubitus ulcer on her left heel from pressure. Patient was seen for all of these injuries and surgeries up in [place] and the [facility]. She says she was sent to the wound healing center at request of her primary care physician. Progress of Wound: Ulcer remains stable. No signs of local infection noted to left heel. Patient denies any current feelings of nausea, vomiting, fever, or chills. - Physical Exam Vital Signs Temp Pulse Resp BP 97.5 F L 118 H 18 135/84 H 09/09/18 11:08 09/16/18 11:25 09/16/18 11:25 09/16/18 11:25 General: Alert, Oriented x3, Cooperative, No apparent distress Extremities: Capillary Refill Less than 3 Seconds, No Calf Tenderness - Negative Shay and Rankin signs, Diminished Peripheral Pulses - DP pulse palpable and PT pulse nonpalpable, Edema - Minor lower extremity edema Skin: Ulcer/ Wound - Unstageable pressure ulcer with overlying stable eschar to the left posterior heel. There is no bogginess or fluctuance appreciated underlying the eschar at this time. There is no drainage appreciated. There is no surrounding or extending cellulitis or increased warmth to the area or any other signs of local bacterial infection. Wound Measurements and Assessment WC - Nurse 1 - General Ulcer Measurement Start: 09/09/18 11:08 Freq: Status: Active Protocol: Activity Type Activity Date Activity User E-Sign Co-Sign Detail Recorded Client Recorded Date Recorded By Document 09/16/18 11:25 MI [email or web address] 09/16/18 11:31 MI 09/16/18 11:25 Wound Center Nurse 1 [Ulcer Assessment] #1 left heel -Current Size (cm) - Length 0.1 -Current Size (cm) - Width 0.1 -Current Size (cm) - Depth 0.1 -Total Square Cm 0.01 -Texture (Deepa-wound Skin Appearance) Assessed Callus -Moisture (Deepa-wound Skin Appearance Assessed ) -Color (Deepa-wound Skin Appearance) Assessed -Temperature (Deepa-wound Skin No Abnormality Appearance) (Pt Warm) -Tenderness on Palpation (Deepa-wound No Skin Appearance) -Ulcer Cleansing Wound Cleanser -Foul Odor after Cleansing No -Anesthetic Used 4% Lidocaine Solution [Edema Assessment] -Left Calf (cm) 33 -Left Ankle (cm) 22 WC - Nurse 2 - General Ulcer CM Notes Start: 09/09/18 11:08 Freq: Status: Active Protocol: Activity Type Activity Date Activity User E-Sign Co-Sign Detail Recorded Client Recorded Date Recorded By Document 09/16/18 12:06 [id number] 09/16/18 12:11 09/16/18 12:06 Wound Center Nurse 2 [Procedure/Treatment] #1 left heel -Time 12:11 -Correct Patient Yes -Correct Side, Site, Position Yes -Correct Procedure Yes -Procedure Performed No -Type of Procedure Debridement -Clinical Debridement Subcutaneous -Post Debridement Size (cm) - Length 0.1 -Post Debridement Size (cm) - Width 0.1 -Post Debridement Size (cm) - Depth 0.1 -Total Square Cm 0.01 -Wound/Ulcer Outcome Not Healed -Ulcer Cleansing Rinsed/ Irrigated with Saline -Foul Odor after Cleansing No -Bioengineered Tissue No [See Physician Procedure note for Specifics] Pain Scale: 0-10 Numeric [Pain] -Is Patient Pain Free? Yes Musculoskeletal: Tenderness - Minor tenderness with manipulation of ulcer site Neurological: Sensory exam intact to light touch and pain Psych/Mental Status: Normal Affect, Appropriate Debridement Note Post-Debridement Measurements/Treatment WC - Nurse 2 - General Ulcer CM Notes Start: 09/09/18 11:08 Freq: Status: Active Protocol: Activity Type Activity Date Activity User E-Sign Co-Sign Detail Recorded Client Recorded Date Recorded By Document 09/16/18 12:06 KATERINA [id number] 09/16/18 12:11 AN 09/16/18 12:06 Wound Center Nurse 2 #1 left heel -Time 12:11 -Correct Patient Yes -Correct Side, Site, Position Yes -Correct Procedure Yes -Procedure Performed No -Type of Procedure Debridement -Clinical Debridement Subcutaneous -Post Debridement Size (cm) - Length 0.1 -Post Debridement Size (cm) - Width 0.1 -Post Debridement Size (cm) - Depth 0.1 -Total Square Cm 0.01 -Wound/Ulcer Outcome Not Healed -Ulcer Cleansing Rinsed/ Irrigated with Saline -Foul Odor after Cleansing No -Bioengineered Tissue No Pain Scale: 0-10 Numeric Is Patient Pain Free? Yes No debridement was completed today Assessment/Plan Assessment: Decubitus ulcer left heel unstageable. Polymyositis. Fractured left ankle Plan: Patient was carefully examined and evaluated in great detail again today. Stable eschar overlying the ulcer site. There continue to be no signs of infection appreciated as well as no bogginess or fluctuance to the heel. A tissue nipper was used to carefully remove a very small amount of loosened eschar circumferentially around the ulcer site again today. No aggressive debridement performed today. The site was carefully painted with Betadine followed by an offloading dry sterile dressing. The patient is to continue with dressing changes in this manner on a daily basis, in order to keep the area stable and from turning wet. The importance of keeping the left heel offloaded at all times was stressed in great detail with the patient today. She is to be nonweightbearing to the left heel. At all times while seated or laying down the patient is to have the area completely offloaded with nothing by air touching the ulcer site. She says she understands this. LEAS and venous duplex studies were reviewed today and the patient will be referred for vascular consult to see if there is need for any further work-up at this time. Patient would like to do this at the [facility] and says that she will contact her primary care doctor in order to set this up and be referred. We can consider x- rays of the heel in the future if needed. All questions were answered to the patient's satisfaction today. All signs and symptoms of local and systemic infection were discussed with the patient and she was instructed to go to the emergency room immediately should she notice any of these. She is to follow back up at the wound healing center in 1 week to check on progress, but was instructed to follow-up sooner if needed.
[2018-09-30 10:43] VITALS: BP 156/64; PULSE 93; RESP 18; TEMP 36.5; BMI 27.4
--- NOTE | 2018-09-30 13:20 | PCM.WC.PN ---
(1) Decubitus ulcer of left heel, unstageable Status: Acute Current Visit: No Code(s): L89.620 - Pressure ulcer of left heel, unstageable (2) Polymyositis associated with autoimmune disease Status: Acute Current Visit: No Code(s): M33.20 - Polymyositis, organ involvement unspecified; M35.9 - Systemic involvement of connective tissue, unspecified (3) Diabetes type 2, controlled Status: Chronic Current Visit: No Code(s): E11.9 - Type 2 diabetes mellitus without complications (4) Delayed wound healing Status: Acute Current Visit: No Code(s): T14.8XXD - Other injury of unspecified body region, subsequent encounter Type of Wound Chief Complaint: Follow-up on left heel ulcer History of Wound: 67-year-old white female with an autoimmune disorder is on steroids and plasma infusions fell and injured her left shoulder left upper arm humerus and left foot ankle. The fall occurred May [id number] she finally had surgery on June 142018 with plates and screws in the left ankle area she has been casted 3 times and after the last cast has developed a decubitus ulcer on her left heel from pressure. Patient was seen for all of these injuries and surgeries up in [place] and the [facility]. She says she was sent to the wound healing center at request of her primary care physician. Progress of Wound: Ulcer remains stable. No signs of local infection noted to left heel. Patient denies any current feelings of nausea, vomiting, fever, or chills. - Physical Exam Vital Signs Temp Pulse Resp BP 97.7 F L 93 18 156/64 H 09/30/18 10:43 09/30/18 10:43 09/30/18 10:43 09/30/18 10:43 General: Alert, Oriented x3, Cooperative, No apparent distress Extremities: Capillary Refill Less than 3 Seconds, No Calf Tenderness - Negative Shay and Rankin signs, Diminished Peripheral Pulses - DP pulse palpable and PT pulse nonpalpable, Edema - Minor lower extremity edema Skin: Ulcer/ Wound - Unstageable pressure ulcer with overlying stable eschar to the left posterior heel. There continues to be no bogginess or fluctuance appreciated underlying the eschar. There is no drainage appreciated. There is no surrounding or extending cellulitis or increased warmth to the area or any other signs of local bacterial infection. Wound Measurements and Assessment WC - Nurse 1 - General Ulcer Measurement Start: 09/09/18 11:08 Freq: Status: Active Protocol: Activity Type Activity Date Activity User E-Sign Co-Sign Detail Recorded Client Recorded Date Recorded By Document 09/30/18 10:43 [facility] [id number] 09/30/18 10:49 [facility] 09/30/18 10:43 Wound Center Nurse 1 [Ulcer Assessment] #1 left heel -Combined with other wound No -Current Size (cm) - Length 1.4 -Current Size (cm) - Width 2 -Current Size (cm) - Depth 0.3 -Total Square Cm 2.8 -Photo Taken No -Epithelialization None Present -Tunneling No -Undermining/Tunneling No -Circular Undermining No -Exudate Amt None Present -Wound Margin Distinct, Outline Attached -Granulation Amt None Present (0 %) -Slough/Fibrin Yes -Necrosis Amt Large (67-100%) -Necrotic Tissue Type Eschar -Structure Exposed N/A -Texture (Deepa-wound Skin Appearance) Assessed -Moisture (Deepa-wound Skin Appearance Assessed ) -Color (Deepa-wound Skin Appearance) Assessed -Temperature (Deepa-wound Skin No Abnormality Appearance) (Pt Warm) -Tenderness on Palpation (Deepa-wound Yes Skin Appearance) -Ulcer Cleansing Rinsed/ Irrigated with Saline -Foul Odor after Cleansing No -Anesthetic Used 5% Lidocaine Gel [Edema Assessment] -Lower Limb Edema Present Yes -Left Calf (cm) 34 -Left Ankle (cm) 22.5 WC - Nurse 2 - General Ulcer CM Notes Start: 09/09/18 11:08 Freq: Status: Active Protocol: Activity Type Activity Date Activity User E-Sign Co-Sign Detail Recorded Client Recorded Date Recorded By Document 09/30/18 11:38 AN [id number] 09/30/18 11:44 AN 09/30/18 11:38 Wound Center Nurse 2 [Procedure/Treatment] #1 left heel -Time 11:38 -Correct Patient Yes -Correct Side, Site, Position Yes -Correct Procedure Yes -Procedure Performed No -Post Debridement Size (cm) - Length 1.4 -Post Debridement Size (cm) - Width 2 -Post Debridement Size (cm) - Depth 0.3 -Total Square Cm 2.8 -Wound/Ulcer Outcome Not Healed -Bleeding Controlled with Pressure -Offloading Yes -Type of Offloading Surgical Shoe -Treatment Response Procedure Tolerated Well [See Physician Procedure note for Specifics] Pain Scale: 0-10 Numeric [Pain] -Is Patient Pain Free? Yes Musculoskeletal: Tenderness - Minor tenderness with manipulation of ulcer site Neurological: Sensory exam intact to light touch and pain Psych/Mental Status: Normal Affect, Appropriate Debridement Note Post-Debridement Measurements/Treatment WC - Nurse 2 - General Ulcer CM Notes Start: 09/09/18 11:08 Freq: Status: Active Protocol: Activity Type Activity Date Activity User E-Sign Co-Sign Detail Recorded Client Recorded Date Recorded By Document 09/16/18 12:06 AN [id number] 09/16/18 12:11 AN Document 09/30/18 11:38 AN [id number] 09/30/18 11:44 AN 09/16/18 09/30/18 12:06 11:38 Wound Center Nurse 2 #1 left heel -Time 12:11 11:38 -Correct Patient Yes Yes -Correct Side, Site, Position Yes Yes -Correct Procedure Yes Yes -Procedure Performed No No -Type of Procedure Debridement -Clinical Debridement Subcutaneous -Post Debridement Size (cm) - Length 0.1 1.4 -Post Debridement Size (cm) - Width 0.1 2 -Post Debridement Size (cm) - Depth 0.1 0.3 -Total Square Cm 0.01 2.8 -Wound/Ulcer Outcome Not Healed Not Healed -Ulcer Cleansing Rinsed/ Irrigated with Saline -Foul Odor after Cleansing No -Bioengineered Tissue No -Bleeding Controlled with Pressure -Offloading Yes -Type of Offloading Surgical Shoe -Treatment Response Procedure Tolerated Well Pain Scale: 0-10 Numeric Is Patient Pain Free? Yes Yes No debridement was completed today Assessment/Plan Assessment: Decubitus ulcer left heel unstageable. Polymyositis. Fractured left ankle Plan: Patient was carefully examined and evaluated in great detail again today. Stable eschar overlying the ulcer site. There continue to be no signs of infection appreciated as well as no bogginess or fluctuance to the heel. A tissue nipper was used to carefully remove a very small amount of loosened eschar circumferentially around the ulcer site again today. No aggressive debridement performed today. The site was carefully painted with Betadine followed by an offloading dry sterile dressing. The patient is to continue with dressing changes in this manner on a daily basis, in order to keep the area stable and from turning wet. The importance of keeping the left heel offloaded at all times was stressed in great detail with the patient today. She is to be nonweightbearing to the left heel. At all times while seated or laying down the patient is to have the area completely offloaded with nothing by air touching the ulcer site. She says she understands this. LEAS and venous duplex studies were reviewed today and the patient will be referred for vascular consult to see if there is need for any further work-up at this time. Patient would like to do this at the [facility] and says that she will contact her primary care doctor in order to set this up and be referred. She says her vascular doctor at the Clinic said they could not get her in until the 01 of November. She says she is calling this afternoon to have her appointment moved up. We can consider x-rays of the heel in the future if needed. All questions were answered to the patient's satisfaction today. All signs and symptoms of local and systemic infection were discussed with the patient and she was instructed to go to the emergency room immediately should she notice any of these. She is to follow back up at the wound healing center in 1 week to check on progress, but was instructed to follow-up sooner if needed.
--- NOTE | 2018-09-30 13:29 | PN.PCM_ITS ---
(1) Decubitus ulcer of left heel, unstageable Status: Acute Current Visit: No Code(s): L89.620 - Pressure ulcer of left heel, unstageable (2) Polymyositis associated with autoimmune disease Status: Acute Current Visit: No Code(s): M33.20 - Polymyositis, organ involvement unspecified; M35.9 - Systemic involvement of connective tissue, unspecified (3) Diabetes type 2, controlled Status: Chronic Current Visit: No Code(s): E11.9 - Type 2 diabetes mellitus without complications (4) Delayed wound healing Status: Acute Current Visit: No Code(s): T14.8XXD - Other injury of unspecified body region, subsequent encounter Type of Wound Chief Complaint: Follow-up on left heel ulcer History of Wound: 67-year-old white female with an autoimmune disorder is on steroids and plasma infusions fell and injured her left shoulder left upper arm humerus and left foot ankle. The fall occurred May [id number] she finally had surgery on June 142018 with plates and screws in the left ankle area she has been casted 3 times and after the last cast has developed a decubitus ulcer on her left heel from pressure. Patient was seen for all of these injuries and surgeries up in [place] and the [facility]. She says she was sent to the wound healing center at request of her primary care physician. Progress of Wound: Ulcer remains stable. No signs of local infection noted to left heel. Patient denies any current feelings of nausea, vomiting, fever, or chills. - Physical Exam Vital Signs Temp Pulse Resp BP 97.7 F L 93 18 156/64 H 09/30/18 10:43 09/30/18 10:43 09/30/18 10:43 09/30/18 10:43 General: Alert, Oriented x3, Cooperative, No apparent distress Extremities: Capillary Refill Less than 3 Seconds, No Calf Tenderness - Negative Shay and Rankin signs, Diminished Peripheral Pulses - DP pulse palpable and PT pulse nonpalpable, Edema - Minor lower extremity edema Skin: Ulcer/ Wound - Unstageable pressure ulcer with overlying stable eschar to the left posterior heel. There continues to be no bogginess or fluctuance appreciated underlying the eschar. There is no drainage appreciated. There is no surrounding or extending cellulitis or increased warmth to the area or any other signs of local bacterial infection. Wound Measurements and Assessment WC - Nurse 1 - General Ulcer Measurement Start: 09/09/18 11:08 Freq: Status: Active Protocol: Activity Type Activity Date Activity User E-Sign Co-Sign Detail Recorded Client Recorded Date Recorded By Document 09/30/18 10:43 [facility] [id number] 09/30/18 10:49 [facility] 09/30/18 10:43 Wound Center Nurse 1 [Ulcer Assessment] #1 left heel -Combined with other wound No -Current Size (cm) - Length 1.4 -Current Size (cm) - Width 2 -Current Size (cm) - Depth 0.3 -Total Square Cm 2.8 -Photo Taken No -Epithelialization None Present -Tunneling No -Undermining/Tunneling No -Circular Undermining No -Exudate Amt None Present -Wound Margin Distinct, Outline Attached -Granulation Amt None Present (0 %) -Slough/Fibrin Yes -Necrosis Amt Large (67-100%) -Necrotic Tissue Type Eschar -Structure Exposed N/A -Texture (Deepa-wound Skin Appearance) Assessed -Moisture (Deepa-wound Skin Appearance Assessed ) -Color (Deepa-wound Skin Appearance) Assessed -Temperature (Deepa-wound Skin No Abnormality Appearance) (Pt Warm) -Tenderness on Palpation (Deepa-wound Yes Skin Appearance) -Ulcer Cleansing Rinsed/ Irrigated with Saline -Foul Odor after Cleansing No -Anesthetic Used 5% Lidocaine Gel [Edema Assessment] -Lower Limb Edema Present Yes -Left Calf (cm) 34 -Left Ankle (cm) 22.5 WC - Nurse 2 - General Ulcer CM Notes Start: 09/09/18 11:08 Freq: Status: Active Protocol: Activity Type Activity Date Activity User E-Sign Co-Sign Detail Recorded Client Recorded Date Recorded By Document 09/30/18 11:38 AN [id number] 09/30/18 11:44 AN 09/30/18 11:38 Wound Center Nurse 2 [Procedure/Treatment] #1 left heel -Time 11:38 -Correct Patient Yes -Correct Side, Site, Position Yes -Correct Procedure Yes -Procedure Performed No -Post Debridement Size (cm) - Length 1.4 -Post Debridement Size (cm) - Width 2 -Post Debridement Size (cm) - Depth 0.3 -Total Square Cm 2.8 -Wound/Ulcer Outcome Not Healed -Bleeding Controlled with Pressure -Offloading Yes -Type of Offloading Surgical Shoe -Treatment Response Procedure Tolerated Well [See Physician Procedure note for Specifics] Pain Scale: 0-10 Numeric [Pain] -Is Patient Pain Free? Yes Musculoskeletal: Tenderness - Minor tenderness with manipulation of ulcer site Neurological: Sensory exam intact to light touch and pain Psych/Mental Status: Normal Affect, Appropriate Debridement Note Post-Debridement Measurements/Treatment WC - Nurse 2 - General Ulcer CM Notes Start: 09/09/18 11:08 Freq: Status: Active Protocol: Activity Type Activity Date Activity User E-Sign Co-Sign Detail Recorded Client Recorded Date Recorded By Document 09/16/18 12:06 AN [id number] 09/16/18 12:11 AN Document 09/30/18 11:38 AN [id number] 09/30/18 11:44 AN 09/16/18 09/30/18 12:06 11:38 Wound Center Nurse 2 #1 left heel -Time 12:11 11:38 -Correct Patient Yes Yes -Correct Side, Site, Position Yes Yes -Correct Procedure Yes Yes -Procedure Performed No No -Type of Procedure Debridement -Clinical Debridement Subcutaneous -Post Debridement Size (cm) - Length 0.1 1.4 -Post Debridement Size (cm) - Width 0.1 2 -Post Debridement Size (cm) - Depth 0.1 0.3 -Total Square Cm 0.01 2.8 -Wound/Ulcer Outcome Not Healed Not Healed -Ulcer Cleansing Rinsed/ Irrigated with Saline -Foul Odor after Cleansing No -Bioengineered Tissue No -Bleeding Controlled with Pressure -Offloading Yes -Type of Offloading Surgical Shoe -Treatment Response Procedure Tolerated Well Pain Scale: 0-10 Numeric Is Patient Pain Free? Yes Yes No debridement was completed today Assessment/Plan Assessment: Decubitus ulcer left heel unstageable. Polymyositis. Fractured left ankle Plan: Patient was carefully examined and evaluated in great detail again today. Stable eschar overlying the ulcer site. There continue to be no signs of infection appreciated as well as no bogginess or fluctuance to the heel. A tissue nipper was used to carefully remove a very small amount of loosened eschar circumferentially around the ulcer site again today. No aggressive debridement performed today. The site was carefully painted with Betadine followed by an offloading dry sterile dressing. The patient is to continue with dressing changes in this manner on a daily basis, in order to keep the area stable and from turning wet. The importance of keeping the left heel offloaded at all times was stressed in great detail with the patient today. She is to be nonweightbearing to the left heel. At all times while seated or laying down the patient is to have the area completely offloaded with nothing by air touching the ulcer site. She says she understands this. LEAS and venous duplex studies were reviewed today and the patient will be referred for vascular consult to see if there is need for any further work-up at this time. Patient would like to do this at the [facility] and says that she will contact her primary care doctor in order to set this up and be referred. She says her vascular doctor at the Clinic said they could not get her in until the 01 of November. She says she is calling this afternoon to have her appointment moved up. We can consider x-rays of the heel in the future if needed. All questions were answered to the patient's satisfaction today. All signs and symptoms of local and systemic infection were discussed with the patient and she was instructed to go to the emergency room immediately should she notice any of these. She is to follow back up at the wound healing center in 1 week to check on progress, but was instructed to follow-up sooner if needed.
[2018-10-07 10:59] VITALS: BP 139/64; PULSE 90; RESP 16; TEMP 36.1; BMI 27.4
--- NOTE | 2018-10-07 11:44 | PCM.WC.PN ---
(1) Decubitus ulcer of left heel, unstageable Status: Acute Current Visit: No Code(s): L89.620 - Pressure ulcer of left heel, unstageable (2) Polymyositis associated with autoimmune disease Status: Acute Current Visit: No Code(s): M33.20 - Polymyositis, organ involvement unspecified; M35.9 - Systemic involvement of connective tissue, unspecified (3) Diabetes type 2, controlled Status: Chronic Current Visit: No Code(s): E11.9 - Type 2 diabetes mellitus without complications (4) Delayed wound healing Status: Acute Current Visit: No Code(s): T14.8XXD - Other injury of unspecified body region, subsequent encounter Type of Wound Chief Complaint: Follow-up on left heel ulcer History of Wound: 67-year-old white female with an autoimmune disorder is on steroids and plasma infusions fell and injured her left shoulder left upper arm humerus and left foot ankle. The fall occurred May [id number] she finally had surgery on June 142018 with plates and screws in the left ankle area she has been casted 3 times and after the last cast has developed a decubitus ulcer on her left heel from pressure. Patient was seen for all of these injuries and surgeries up in [place] and the [facility]. She says she was sent to the wound healing center at request of her primary care physician. Progress of Wound: Ulcer remains stable. No signs of local infection noted to left heel. Patient denies any current feelings of nausea, vomiting, fever, or chills. - Physical Exam Vital Signs Temp Pulse Resp BP 96.9 F L 90 16 139/64 H 10/07/18 10:59 10/07/18 10:59 10/07/18 10:59 10/07/18 10:59 General: Alert, Oriented x3, Cooperative, No apparent distress Extremities: Capillary Refill Less than 3 Seconds, No Calf Tenderness - Negative Shay and Rankin signs, Diminished Peripheral Pulses - DP pulses palpable and PT pulse nonpalpable, Edema - Minor lower extremity edema Skin: Ulcer/ Wound - Unstageable pressure ulcer with overlying stable eschar to the left posterior heel. There continues to be no bogginess or fluctuance appreciated underlying the eschar. There is no drainage appreciated. There is no surrounding or extending cellulitis or increased warmth to the area or any other signs of local bacterial infection. There is also some fibrotic tissue around the area of eschar as well. Wound Measurements and Assessment WC - Nurse 1 - General Ulcer Measurement Start: 09/09/18 11:08 Freq: Status: Active Protocol: Activity Type Activity Date Activity User E-Sign Co-Sign Detail Recorded Client Recorded Date Recorded By Document 10/07/18 10:59 ALTON [id number] 10/07/18 11:08 DL 10/07/18 10:59 Wound Center Nurse 1 [Ulcer Assessment] #1 left heel -Current Size (cm) - Length 1.6 -Current Size (cm) - Width 2.1 -Current Size (cm) - Depth 0.4 -Total Square Cm 3.36 -Photo Taken No -Exudate Amt Small -Exudate Type Serosanguineous -Wound Margin Distinct, Outline Attached -Granulation Amt None Present (0 %) -Necrosis Amt Large (67-100%) -Necrotic Tissue Type Adherent Slough -Structure Exposed N/A -Texture (Deepa-wound Skin Appearance) Scarring -Moisture (Deepa-wound Skin Appearance No Abnormality ) -Color (Deepa-wound Skin Appearance) No Abnormality -Temperature (Deepa-wound Skin No Abnormality Appearance) (Pt Warm) -Tenderness on Palpation (Deepa-wound No Skin Appearance) -Ulcer Cleansing Rinsed/ Irrigated with Saline -Foul Odor after Cleansing No -Anesthetic Used 5% Lidocaine Gel [Edema Assessment] -Left Calf (cm) 34.5 -Left Ankle (cm) 21.2 WC - Nurse 2 - General Ulcer CM Notes Start: 09/09/18 11:08 Freq: Status: Active Protocol: Activity Type Activity Date Activity User E-Sign Co-Sign Detail Recorded Client Recorded Date Recorded By Document 10/07/18 11:19 [id number] 10/07/18 11:25 10/07/18 11:19 Wound Center Nurse 2 [Procedure/Treatment] #1 left heel -Time 11:23 -Correct Patient Yes -Correct Side, Site, Position Yes -Correct Procedure Yes -Procedure Performed Yes -Type of Procedure Debridement -Clinical Debridement Subcutaneous -Post Debridement Size (cm) - Length 1.7 -Post Debridement Size (cm) - Width 1.9 -Post Debridement Size (cm) - Depth 0.2 -Total Square Cm 3.23 -Wound/Ulcer Outcome Not Healed -Ulcer Cleansing Rinsed/ Irrigated with Saline -Foul Odor after Cleansing No -Bioengineered Tissue No -Bleeding Controlled with Pressure -Offloading No -Treatment Response Procedure Tolerated Well [See Physician Procedure note for Specifics] Pain Scale: 0-10 Numeric [Pain] -Is Patient Pain Free? Yes Musculoskeletal: Tenderness - Minor tenderness with manipulation of ulcer site Neurological: Sensory exam intact to light touch and pain Psych/Mental Status: Normal Affect, Appropriate Debridement Note Post-Debridement Measurements/Treatment WC - Nurse 2 - General Ulcer CM Notes Start: 09/09/18 11:08 Freq: Status: Active Protocol: Activity Type Activity Date Activity User E-Sign Co-Sign Detail Recorded Client Recorded Date Recorded By Document 09/16/18 12:06 AN [id number] 09/16/18 12:11 AN Document 09/30/18 11:38 AN [id number] 09/30/18 11:44 AN Document 10/07/18 11:19 JF [id number] 10/07/18 11:25 JF 09/16/18 09/30/18 10/07/18 12:06 11:38 11:19 Wound Center Nurse 2 #1 left heel -Time 12:11 11:38 11:23 -Correct Patient Yes Yes Yes -Correct Side, Site, Position Yes Yes Yes -Correct Procedure Yes Yes Yes -Procedure Performed No No Yes -Type of Procedure Debridement Debridement -Clinical Debridement Subcutaneous Subcutaneous -Post Debridement Size (cm) - Length 0.1 1.4 1.7 -Post Debridement Size (cm) - Width 0.1 2 1.9 -Post Debridement Size (cm) - Depth 0.1 0.3 0.2 -Total Square Cm 0.01 2.8 3.23 -Wound/Ulcer Outcome Not Healed Not Healed Not Healed -Ulcer Cleansing Rinsed/ Rinsed/ Irrigated with Irrigated with Saline Saline -Foul Odor after Cleansing No No -Bioengineered Tissue No No -Bleeding Controlled with Pressure Pressure -Offloading Yes No -Type of Offloading Surgical Shoe -Treatment Response Procedure Procedure Tolerated Well Tolerated Well Pain Scale: 0-10 Numeric Is Patient Pain Free? Yes Yes Yes Wound debrided: Left posterior heel Laterality: Left Type of Debridement: Excisional debridement Anesthesia Used: 4% Lidocaine Solution Depth: in the subcutaneous layer Percentage of wound debrided: 50 Instrument Used: - - Tissue nipper Tissue Removed: Fibrotic tissue, slough, eschar Severity: Fat Layer Exposed Amount of bleeding with debridement: Mild Bleeding Controlled with: Pressure Patient tolerated procedure well Assessment/Plan Assessment: Decubitus ulcer left heel unstageable. Polymyositis. Fractured left ankle Plan: Patient was carefully examined and evaluated in great detail again today. Debridement performed as noted in the clinical panel. There continue to be no signs of infection appreciated as well as no bogginess or fluctuance to the heel. The site was carefully dressed with Santyl and a dry sterile dressing. The patient is to continue with dressing changes in this manner on a daily basis and monitor closely for any changing of ulcer site. The importance of keeping the left heel offloaded at all times was stressed in great detail with the patient today. She has been noncompliant in this so far. She is to be nonweightbearing to the left heel. At all times while seated or laying down the patient is to have the area completely offloaded with nothing by air touching the ulcer site. She says she understands this. LEAS and venous duplex studies were reviewed today and the patient will be referred for vascular consult to see if there is need for any further work-up at this time. Patient would like to do this at the [facility] facility and says that she will contact her primary care doctor in order to set this up and be referred. She says her vascular doctor at the Clinic said they could not get her in until the 01 of November. We will call to see if we can move this appointment up any sooner. We can consider x-rays of the heel in the future if needed. All questions were answered to the patient's satisfaction today. All signs and symptoms of local and systemic infection were discussed with the patient and she was instructed to go to the emergency room immediately should she notice any of these. She is to follow back up at the wound healing center in 1 week to check on progress, but was instructed to follow-up sooner if needed.
--- NOTE | 2018-10-07 11:50 | PN.PCM_ITS ---
(1) Decubitus ulcer of left heel, unstageable Status: Acute Current Visit: No Code(s): L89.620 - Pressure ulcer of left heel, unstageable (2) Polymyositis associated with autoimmune disease Status: Acute Current Visit: No Code(s): M33.20 - Polymyositis, organ involvement unspecified; M35.9 - Systemic involvement of connective tissue, unspecified (3) Diabetes type 2, controlled Status: Chronic Current Visit: No Code(s): E11.9 - Type 2 diabetes mellitus without complications (4) Delayed wound healing Status: Acute Current Visit: No Code(s): T14.8XXD - Other injury of unspecified body region, subsequent encounter Type of Wound Chief Complaint: Follow-up on left heel ulcer History of Wound: 67-year-old white female with an autoimmune disorder is on steroids and plasma infusions fell and injured her left shoulder left upper arm humerus and left foot ankle. The fall occurred May [id number] she finally had surgery on June 142018 with plates and screws in the left ankle area she has been casted 3 times and after the last cast has developed a decubitus ulcer on her left heel from pressure. Patient was seen for all of these injuries and surgeries up in [place] and the [facility]. She says she was sent to the wound healing center at request of her primary care physician. Progress of Wound: Ulcer remains stable. No signs of local infection noted to left heel. Patient denies any current feelings of nausea, vomiting, fever, or chills. - Physical Exam Vital Signs Temp Pulse Resp BP 96.9 F L 90 16 139/64 H 10/07/18 10:59 10/07/18 10:59 10/07/18 10:59 10/07/18 10:59 General: Alert, Oriented x3, Cooperative, No apparent distress Extremities: Capillary Refill Less than 3 Seconds, No Calf Tenderness - Negative Shay and Rankin signs, Diminished Peripheral Pulses - DP pulses palpable and PT pulse nonpalpable, Edema - Minor lower extremity edema Skin: Ulcer/ Wound - Unstageable pressure ulcer with overlying stable eschar to the left posterior heel. There continues to be no bogginess or fluctuance appreciated underlying the eschar. There is no drainage appreciated. There is no surrounding or extending cellulitis or increased warmth to the area or any other signs of local bacterial infection. There is also some fibrotic tissue around the area of eschar as well. Wound Measurements and Assessment WC - Nurse 1 - General Ulcer Measurement Start: 09/09/18 11:08 Freq: Status: Active Protocol: Activity Type Activity Date Activity User E-Sign Co-Sign Detail Recorded Client Recorded Date Recorded By Document 10/07/18 10:59 ALTON [id number] 10/07/18 11:08 DL 10/07/18 10:59 Wound Center Nurse 1 [Ulcer Assessment] #1 left heel -Current Size (cm) - Length 1.6 -Current Size (cm) - Width 2.1 -Current Size (cm) - Depth 0.4 -Total Square Cm 3.36 -Photo Taken No -Exudate Amt Small -Exudate Type Serosanguineous -Wound Margin Distinct, Outline Attached -Granulation Amt None Present (0 %) -Necrosis Amt Large (67-100%) -Necrotic Tissue Type Adherent Slough -Structure Exposed N/A -Texture (Deepa-wound Skin Appearance) Scarring -Moisture (Deepa-wound Skin Appearance No Abnormality ) -Color (Deepa-wound Skin Appearance) No Abnormality -Temperature (Deepa-wound Skin No Abnormality Appearance) (Pt Warm) -Tenderness on Palpation (Deepa-wound No Skin Appearance) -Ulcer Cleansing Rinsed/ Irrigated with Saline -Foul Odor after Cleansing No -Anesthetic Used 5% Lidocaine Gel [Edema Assessment] -Left Calf (cm) 34.5 -Left Ankle (cm) 21.2 WC - Nurse 2 - General Ulcer CM Notes Start: 09/09/18 11:08 Freq: Status: Active Protocol: Activity Type Activity Date Activity User E-Sign Co-Sign Detail Recorded Client Recorded Date Recorded By Document 10/07/18 11:19 [id number] 10/07/18 11:25 10/07/18 11:19 Wound Center Nurse 2 [Procedure/Treatment] #1 left heel -Time 11:23 -Correct Patient Yes -Correct Side, Site, Position Yes -Correct Procedure Yes -Procedure Performed Yes -Type of Procedure Debridement -Clinical Debridement Subcutaneous -Post Debridement Size (cm) - Length 1.7 -Post Debridement Size (cm) - Width 1.9 -Post Debridement Size (cm) - Depth 0.2 -Total Square Cm 3.23 -Wound/Ulcer Outcome Not Healed -Ulcer Cleansing Rinsed/ Irrigated with Saline -Foul Odor after Cleansing No -Bioengineered Tissue No -Bleeding Controlled with Pressure -Offloading No -Treatment Response Procedure Tolerated Well [See Physician Procedure note for Specifics] Pain Scale: 0-10 Numeric [Pain] -Is Patient Pain Free? Yes Musculoskeletal: Tenderness - Minor tenderness with manipulation of ulcer site Neurological: Sensory exam intact to light touch and pain Psych/Mental Status: Normal Affect, Appropriate Debridement Note Post-Debridement Measurements/Treatment WC - Nurse 2 - General Ulcer CM Notes Start: 09/09/18 11:08 Freq: Status: Active Protocol: Activity Type Activity Date Activity User E-Sign Co-Sign Detail Recorded Client Recorded Date Recorded By Document 09/16/18 12:06 AN [id number] 09/16/18 12:11 AN Document 09/30/18 11:38 AN [id number] 09/30/18 11:44 AN Document 10/07/18 11:19 JF [id number] 10/07/18 11:25 JF 09/16/18 09/30/18 10/07/18 12:06 11:38 11:19 Wound Center Nurse 2 #1 left heel -Time 12:11 11:38 11:23 -Correct Patient Yes Yes Yes -Correct Side, Site, Position Yes Yes Yes -Correct Procedure Yes Yes Yes -Procedure Performed No No Yes -Type of Procedure Debridement Debridement -Clinical Debridement Subcutaneous Subcutaneous -Post Debridement Size (cm) - Length 0.1 1.4 1.7 -Post Debridement Size (cm) - Width 0.1 2 1.9 -Post Debridement Size (cm) - Depth 0.1 0.3 0.2 -Total Square Cm 0.01 2.8 3.23 -Wound/Ulcer Outcome Not Healed Not Healed Not Healed -Ulcer Cleansing Rinsed/ Rinsed/ Irrigated with Irrigated with Saline Saline -Foul Odor after Cleansing No No -Bioengineered Tissue No No -Bleeding Controlled with Pressure Pressure -Offloading Yes No -Type of Offloading Surgical Shoe -Treatment Response Procedure Procedure Tolerated Well Tolerated Well Pain Scale: 0-10 Numeric Is Patient Pain Free? Yes Yes Yes Wound debrided: Left posterior heel Laterality: Left Type of Debridement: Excisional debridement Anesthesia Used: 4% Lidocaine Solution Depth: in the subcutaneous layer Percentage of wound debrided: 50 Instrument Used: - - Tissue nipper Tissue Removed: Fibrotic tissue, slough, eschar Severity: Fat Layer Exposed Amount of bleeding with debridement: Mild Bleeding Controlled with: Pressure Patient tolerated procedure well Assessment/Plan Assessment: Decubitus ulcer left heel unstageable. Polymyositis. Fractured left ankle Plan: Patient was carefully examined and evaluated in great detail again today. Debridement performed as noted in the clinical panel. There continue to be no signs of infection appreciated as well as no bogginess or fluctuance to the heel. The site was carefully dressed with Santyl and a dry sterile dressing. The patient is to continue with dressing changes in this manner on a daily basis and monitor closely for any changing of ulcer site. The importance of keeping the left heel offloaded at all times was stressed in great detail with the patient today. She has been noncompliant in this so far. She is to be nonweightbearing to the left heel. At all times while seated or laying down the patient is to have the area completely offloaded with nothing by air touching the ulcer site. She says she understands this. LEAS and venous duplex studies were reviewed today and the patient will be referred for vascular consult to see if there is need for any further work-up at this time. Patient would like to do this at the [facility] facility and says that she will contact her primary care doctor in order to set this up and be referred. She says her vascular doctor at the Clinic said they could not get her in until the 01 of November. We will call to see if we can move this appointment up any sooner. We can consider x-rays of the heel in the future if needed. All questions were answered to the patient's satisfaction today. All signs and symptoms of local and systemic infection were discussed with the patient and she was instructed to go to the emergency room immediately should she notice any of these. She is to follow back up at the wound healing center in 1 week to check on progress, but was instructed to follow-up sooner if needed.
== END 2018-10-08 23:59 ==
LOC: WC 11:00
PROVIDERS: Family Provider Internal Medicine; PCP Internal Medicine; Referring Provider Podiatrist; Visit Provider Podiatrist
DX: E11.621 Type 2 diabetes mellitus with foot ulcer (principal); L89.620 Pressure ulcer of left heel, unstageable; M33.20 Polymyositis, organ involvement unspecified; M79.89 Other specified soft tissue disorders; D89.89 Other specified disorders involving the immune mechanism, not elsewhere classified; R60.0 Localized edema; Z91.19 Patient's noncompliance with other medical treatment and regimen; M79.672 Pain in left foot; S82.892S Other fracture of left lower leg, sequela; X58.XXXS Exposure to other specified factors, sequela; E11.51 Type 2 diabetes mellitus with diabetic peripheral angiopathy without gangrene; I70.244 Atherosclerosis of native arteries of left leg with ulceration of heel and midfoot
CPT/HCPCS: 11042; 93923; 93970; 99212; 99213; G0463

== ENCOUNTER 2018-11-04 11:00 | Outpatient (RCR) | payer MEDICARE, OTHER, SELFPAY ==
[2018-10-09 01:02] VITALS: BP 139/64; PULSE 90; RESP 16; TEMP 36.1
[2018-10-14 10:56] VITALS: BP 141/72; PULSE 98; RESP 18; TEMP 37; BMI 27.4
--- NOTE | 2018-10-14 12:17 | PCM.WC.PN ---
(1) Decubitus ulcer of left heel, stage 3 Status: Acute Current Visit: No Code(s): L89.623 - Pressure ulcer of left heel, stage 3 (2) Polymyositis associated with autoimmune disease Status: Acute Current Visit: No Code(s): M33.20 - Polymyositis, organ involvement unspecified; M35.9 - Systemic involvement of connective tissue, unspecified (3) Diabetes type 2, controlled Status: Chronic Current Visit: No Code(s): E11.9 - Type 2 diabetes mellitus without complications (4) Delayed wound healing Status: Acute Current Visit: No Code(s): T14.8XXD - Other injury of unspecified body region, subsequent encounter Type of Wound Chief Complaint: Follow-up on left heel ulcer History of Wound: 67-year-old white female with an autoimmune disorder is on steroids and plasma infusions fell and injured her left shoulder left upper arm humerus and left foot ankle. The fall occurred May [id number] she finally had surgery on June 142018 with plates and screws in the left ankle area she has been casted 3 times and after the last cast has developed a decubitus ulcer on her left heel from pressure. Patient was seen for all of these injuries and surgeries up in [place] and the [facility]. She says she was sent to the wound healing center at request of her primary care physician. Progress of Wound: Ulcer remains stable. No signs of local infection noted to left heel. Patient denies any current feelings of nausea, vomiting, fever, or chills. - Physical Exam Vital Signs Temp Pulse Resp BP 98.6 F 98 18 141/72 H 10/14/18 10:56 10/14/18 10:56 10/14/18 10:56 10/14/18 10:56 General: Alert, Oriented x3, Cooperative, No apparent distress Extremities: Capillary Refill Less than 3 Seconds, No Calf Tenderness - Negative Hsay and Rankin signs, Diminished Peripheral Pulses - DP pulses palpable and PT pulses nonpalpable, Edema - Minor lower extremity edema Skin: Ulcer/ Wound - Pressure ulcer with fat layer exposed to the left posterior heel. There continues to be no bogginess or fluctuance appreciated. The base is a mixture of adherent slough, fibrotic tissue, biofilm, scant granular tissue. There is no drainage appreciated. There is no surrounding or extending cellulitis or increased warmth to the area or any other signs of local bacterial infection. Wound Measurements and Assessment WC - Nurse 1 - General Ulcer Measurement Start: 10/14/18 10:55 Freq: Status: Active Protocol: Activity Type Activity Date Activity User E-Sign Co-Sign Detail Recorded Client Recorded Date Recorded By Document 10/14/18 10:56 [facility] [id number] 10/14/18 11:03 [facility] 10/14/18 10:56 Wound Center Nurse 1 [Ulcer Assessment] #1 left heel -Combined with other wound No -Current Size (cm) - Length 1.6 -Current Size (cm) - Width 2.3 -Current Size (cm) - Depth 0.4 -Total Square Cm 3.68 -Photo Taken No -Epithelialization None Present -Tunneling No -Undermining/Tunneling No -Circular Undermining No -Exudate Amt Small -Exudate Type Serous -Wound Margin Distinct, Outline Attached -Granulation Amt Small (1-33%) -Granulation Quality Red -Slough/Fibrin Yes -Necrosis Amt Large (67-100%) -Necrotic Tissue Type Adherent Slough -Texture (Deepa-wound Skin Appearance) Assessed Scarring -Moisture (Deepa-wound Skin Appearance Assessed ) Maceration -Color (Deepa-wound Skin Appearance) Assessed Erythema Palor -Temperature (Deepa-wound Skin No Abnormality Appearance) (Pt Warm) -Tenderness on Palpation (Deepa-wound No Skin Appearance) -Ulcer Cleansing Rinsed/ Irrigated with Saline -Foul Odor after Cleansing No -Anesthetic Used 5% Lidocaine Gel [Edema Assessment] -Lower Limb Edema Present Yes -Left Calf (cm) 35.5 -Left Ankle (cm) 22.5 WC - Nurse 2 - General Ulcer CM Notes Start: 10/14/18 10:55 Freq: Status: Active Protocol: Activity Type Activity Date Activity User E-Sign Co-Sign Detail Recorded Client Recorded Date Recorded By Document 10/14/18 11:19 AN [id number] 10/14/18 11:26 AN 10/14/18 11:19 Wound Center Nurse 2 [Procedure/Treatment] #1 left heel -Time 11:19 -Correct Patient Yes -Correct Side, Site, Position Yes -Correct Procedure Yes -Procedure Performed Yes -Type of Procedure Debridement -Clinical Debridement Subcutaneous -Post Debridement Size (cm) - Length 1.8 -Post Debridement Size (cm) - Width 2.0 -Post Debridement Size (cm) - Depth 0.2 -Total Square Cm 3.60 -Wound/Ulcer Outcome Not Healed -Ulcer Cleansing Rinsed/ Irrigated with Saline -Foul Odor after Cleansing No -Bleeding Controlled with Pressure -Treatment Response Procedure Tolerated Well [See Physician Procedure note for Specifics] Pain Scale: 0-10 Numeric [Pain] -Is Patient Pain Free? Yes Musculoskeletal: Tenderness - Minor tenderness with manipulation of ulcer site Neurological: Sensory exam intact to light touch and pain Psych/Mental Status: Normal Affect, Appropriate Debridement Note Post-Debridement Measurements/Treatment WC - Nurse 2 - General Ulcer CM Notes Start: 10/14/18 10:55 Freq: Status: Active Protocol: Activity Type Activity Date Activity User E-Sign Co-Sign Detail Recorded Client Recorded Date Recorded By Document 10/14/18 11:19 AN [id number] 10/14/18 11:26 AN 10/14/18 11:19 Wound Center Nurse 2 #1 left heel -Time 11:19 -Correct Patient Yes -Correct Side, Site, Position Yes -Correct Procedure Yes -Procedure Performed Yes -Type of Procedure Debridement -Clinical Debridement Subcutaneous -Post Debridement Size (cm) - Length 1.8 -Post Debridement Size (cm) - Width 2.0 -Post Debridement Size (cm) - Depth 0.2 -Total Square Cm 3.60 -Wound/Ulcer Outcome Not Healed -Ulcer Cleansing Rinsed/ Irrigated with Saline -Foul Odor after Cleansing No -Bleeding Controlled with Pressure -Treatment Response Procedure Tolerated Well Pain Scale: 0-10 Numeric Is Patient Pain Free? Yes Wound debrided: Left posterior heel Laterality: Left Type of Debridement: Excisional debridement Anesthesia Used: 4% Lidocaine Solution Depth: in the subcutaneous layer Percentage of wound debrided: 100 Instrument Used: 5mm curette, - - Tissue nipper Tissue Removed: Adherent slough, fibrotic tissue, biofilm Severity: Fat Layer Exposed Amount of bleeding with debridement: Mild Bleeding Controlled with: Pressure Patient tolerated procedure well Assessment/Plan Assessment: Decubitus ulcer left heel unstageable. Polymyositis. Fractured left ankle Plan: Patient was carefully examined and evaluated in great detail again today. Debridement performed as noted in the clinical panel. There continue to be no signs of infection appreciated as well as no bogginess or fluctuance to the heel. The site was carefully dressed with Santyl and a dry sterile dressing. The patient is to continue with dressing changes in this manner on a daily basis and monitor closely for any changing of ulcer site. The importance of keeping the left heel offloaded at all times was stressed in great detail with the patient again today. She has been noncompliant in this so far. She is to be nonweightbearing to the left heel. At all times while seated or laying down the patient is to have the area completely offloaded with nothing but air touching the ulcer site. She says she understands this. LEAS and venous duplex studies were reviewed today and the patient will be referred for vascular consult to see if there is need for any further work-up at this time. Patient relates that earlier this week she saw a vascular doctor for consult, however we have not received the doctor's office note yet. We will continue to look for this and track it down. We can consider x-rays of the heel in the future if needed. All questions were answered to the patient's satisfaction today. All signs and symptoms of local and systemic infection were discussed with the patient and she was instructed to go to the emergency room immediately should she notice any of these. She is to follow back up at the wound healing center in 1 week to check on progress, but was instructed to follow-up sooner if needed.
[2018-10-28 08:22] VITALS: BP 149/81; PULSE 90; RESP 16; TEMP 36.2; BMI 27.4
--- NOTE | 2018-10-28 08:45 | PCM.WC.PN ---
(1) Decubitus ulcer of left heel, stage 3 Status: Acute Current Visit: No Code(s): L89.623 - Pressure ulcer of left heel, stage 3 (2) Polymyositis associated with autoimmune disease Status: Acute Current Visit: No Code(s): M33.20 - Polymyositis, organ involvement unspecified; M35.9 - Systemic involvement of connective tissue, unspecified (3) Diabetes type 2, controlled Status: Chronic Current Visit: No Code(s): E11.9 - Type 2 diabetes mellitus without complications (4) Delayed wound healing Status: Acute Current Visit: No Code(s): T14.8XXD - Other injury of unspecified body region, subsequent encounter Type of Wound Date of Service: 10/28/18 Chief Complaint: Follow-up on left heel ulcer History of Wound: 67-year-old white female with an autoimmune disorder is on steroids and plasma infusions fell and injured her left shoulder left upper arm humerus and left foot ankle. The fall occurred May [id number] she finally had surgery on June 142018 with plates and screws in the left ankle area she has been casted 3 times and after the last cast has developed a decubitus ulcer on her left heel from pressure. Patient was seen for all of these injuries and surgeries up in [place] and the [facility]. She says she was sent to the wound healing center at request of her primary care physician. Progress of Wound: Ulcer base shows slight improvement this week with santyl use. No signs of local infection noted to left heel. Patient denies any current feelings of nausea, vomiting, fever, or chills. - Physical Exam Vital Signs Temp Pulse Resp BP 97.1 F L 90 16 149/81 H 10/28/18 08:22 10/28/18 08:22 10/28/18 08:22 10/28/18 08:22 General: Alert, Oriented x3, Cooperative, No apparent distress Extremities: Capillary Refill Less than 3 Seconds, No Calf Tenderness - Negative Shay and Rankin signs, Diminished Peripheral Pulses - DP pulses palpable and PT pulses nonpalpable, Edema - Minor lower extremity edema Skin: Ulcer/ Wound - Pressure ulcer with fat layer exposed to the left posterior heel. The base is a mixture of adherent slough, fibrotic tissue, biofilm, and slightly increasing amount of granular tissue. There is no drainage appreciated. There is no surrounding or extending cellulitis or increased warmth to the area or any other signs of local bacterial infection. Wound Measurements and Assessment WC - Nurse 1 - General Ulcer Measurement Start: 10/14/18 10:55 Freq: Status: Active Protocol: Activity Type Activity Date Activity User E-Sign Co-Sign Detail Recorded Client Recorded Date Recorded By Document 10/28/18 08:22 [id number] 10/28/18 08:37 10/28/18 08:22 Wound Center Nurse 1 [Ulcer Assessment] #1 left heel -Combined with other wound No -Current Size (cm) - Length 2.8 -Current Size (cm) - Width 1.5 -Current Size (cm) - Depth 0.7 -Total Square Cm 4.20 -Epithelialization Medium 34-66% -Undermining/Tunneling No -Circular Undermining No -Exudate Amt Small -Exudate Type Yellow/Green -Wound Margin Well Defined, Not Attached -Granulation Amt Medium (34-66%) -Granulation Quality N/A -Slough/Fibrin Yes -Necrosis Amt Small (1-33%) -Necrotic Tissue Type Adherent Slough -Structure Exposed None/Limited to Skin Breakdown -Texture (Deepa-wound Skin Appearance) No Abnormality -Moisture (Deepa-wound Skin Appearance Weeping ) -Color (Deepa-wound Skin Appearance) Palor -Temperature (Deepa-wound Skin No Abnormality Appearance) (Pt Warm) -Tenderness on Palpation (Deepa-wound No Skin Appearance) -Ulcer Cleansing Rinsed/ Irrigated with Saline -Foul Odor after Cleansing No -Anesthetic Used 5% Lidocaine Gel [Edema Assessment] -Right Calf (cm) 29.5 WC - Nurse 2 - General Ulcer CM Notes Start: 10/14/18 10:55 Freq: Status: Active Protocol: Activity Type Activity Date Activity User E-Sign Co-Sign Detail Recorded Client Recorded Date Recorded By Document 10/28/18 08:42 KATERINA [id number] 10/28/18 08:45 KATERINA 10/28/18 08:42 Wound Center Nurse 2 [Procedure/Treatment] #1 left heel -Time 08:43 -Correct Patient Yes -Correct Side, Site, Position Yes -Correct Procedure Yes -Procedure Performed No -Post Debridement Size (cm) - Length 1.7 -Post Debridement Size (cm) - Width 2.4 -Post Debridement Size (cm) - Depth 0.4 -Total Square Cm 4.08 -Wound/Ulcer Outcome Not Healed -Ulcer Cleansing Rinsed/ Irrigated with Saline -Foul Odor after Cleansing No -Bioengineered Tissue No -Bleeding Controlled with Pressure [See Physician Procedure note for Specifics] Pain Scale: 0-10 Numeric [Pain] -Is Patient Pain Free? Yes Musculoskeletal: Tenderness - Very minor tenderness with ulcer site manipulation Neurological: Sensory exam intact to light touch and pain Psych/Mental Status: Normal Affect, Appropriate Debridement Note Post-Debridement Measurements/Treatment WC - Nurse 2 - General Ulcer CM Notes Start: 10/14/18 10:55 Freq: Status: Active Protocol: Activity Type Activity Date Activity User E-Sign Co-Sign Detail Recorded Client Recorded Date Recorded By Document 10/14/18 11:19 AN [id number] 10/14/18 11:26 AN Document 10/28/18 08:42 AN [id number] 10/28/18 08:45 AN 10/14/18 10/28/18 11:19 08:42 Wound Center Nurse 2 #1 left heel -Time 11:19 08:43 -Correct Patient Yes Yes -Correct Side, Site, Position Yes Yes -Correct Procedure Yes Yes -Procedure Performed Yes No -Type of Procedure Debridement -Clinical Debridement Subcutaneous -Post Debridement Size (cm) - Length 1.8 1.7 -Post Debridement Size (cm) - Width 2.0 2.4 -Post Debridement Size (cm) - Depth 0.2 0.4 -Total Square Cm 3.60 4.08 -Wound/Ulcer Outcome Not Healed Not Healed -Ulcer Cleansing Rinsed/ Rinsed/ Irrigated with Irrigated with Saline Saline -Foul Odor after Cleansing No No -Bioengineered Tissue No -Bleeding Controlled with Pressure Pressure -Treatment Response Procedure Tolerated Well Pain Scale: 0-10 Numeric Is Patient Pain Free? Yes Yes Wound debrided: Left posterior heel Laterality: Left Type of Debridement: Excisional debridement Anesthesia Used: 4% Lidocaine Solution Depth: in the subcutaneous layer Percentage of wound debrided: 100 Instrument Used: 5mm curette Tissue Removed: Adherent slough, fibrotic tissue, biofilm Severity: Fat Layer Exposed Amount of bleeding with debridement: Mild Bleeding Controlled with: Pressure Patient tolerated procedure well Assessment/Plan Assessment: Decubitus ulcer left heel unstageable. Polymyositis. Fractured left ankle Plan: Patient was carefully examined and evaluated in great detail again today. No significant debridement was performed today. Some of the loose slough was carefully removed manually. The site was dressed with Santyl and a dry sterile dressing. The patient is to continue with dressing changes in this manner on a daily basis and monitor closely for any changing of ulcer site. She has been showing improvement with this over the last couple of weeks. The importance of keeping the left heel offloaded at all times was stressed in great detail with the patient again today. She has been noncompliant in this so far. She is to be nonweightbearing to the left heel. At all times while seated or laying down the patient is to have the area completely offloaded with nothing but air touching the ulcer site. She says she understands this. LEAS and venous duplex studies were reviewed today and the patient will be referred for vascular consult to see if there is need for any further work-up at this time. Patient relates that earlier this week she saw a vascular doctor for consult, however we have not received the doctor's office note yet. We will continue to look for this and track it down. We can consider x-rays of the heel in the future if needed. All questions were answered to the patient's satisfaction today. All signs and symptoms of local and systemic infection were discussed with the patient and she was instructed to go to the emergency room immediately should she notice any of these. She is to follow back up at the wound healing center in 1 week to check on progress, but was instructed to follow-up sooner if needed.
[2018-11-04 11:06] VITALS: BP 134/71; PULSE 82; RESP 18; TEMP 36.8; BMI 27.4
--- NOTE | 2018-11-04 11:41 | PCM.WC.PN ---
(1) Decubitus ulcer of left heel, stage 3 Status: Acute Current Visit: No Code(s): L89.623 - Pressure ulcer of left heel, stage 3 (2) Polymyositis associated with autoimmune disease Status: Acute Current Visit: No Code(s): M33.20 - Polymyositis, organ involvement unspecified; M35.9 - Systemic involvement of connective tissue, unspecified (3) Diabetes type 2, controlled Status: Chronic Current Visit: No Code(s): E11.9 - Type 2 diabetes mellitus without complications (4) Delayed wound healing Status: Acute Current Visit: No Code(s): T14.8XXD - Other injury of unspecified body region, subsequent encounter Type of Wound Date of Service: 11/04/18 Chief Complaint: Follow-up on left heel ulcer History of Wound: 67-year-old white female with an autoimmune disorder is on steroids and plasma infusions fell and injured her left shoulder left upper arm humerus and left foot ankle. The fall occurred May [id number] she finally had surgery on June 142018 with plates and screws in the left ankle area she has been casted 3 times and after the last cast has developed a decubitus ulcer on her left heel from pressure. Patient was seen for all of these injuries and surgeries up in [place] and the [facility]. She says she was sent to the wound healing center at request of her primary care physician. Progress of Wound: Ulcer base shows continued improvement this week with santyl use. No signs of local infection noted to left heel. Patient denies any current feelings of nausea, vomiting, fever, or chills. - Physical Exam Vital Signs Temp Pulse Resp BP 98.2 F 82 18 134/71 H 11/04/18 11:06 11/04/18 11:06 11/04/18 11:06 11/04/18 11:06 General: Alert, Oriented x3, Cooperative, No apparent distress Extremities: Capillary Refill Less than 3 Seconds, No Calf Tenderness - Negative Shay and Rankin signs, Diminished Peripheral Pulses - DP pulses palpable and PT pulses nonpalpable, Edema - Minor lower extremity edema Skin: Ulcer/ Wound - Pressure ulcer with fat layer exposed to the left posterior heel. The base is a mixture of adherent slough, fibrotic tissue, biofilm, and increasing amount of granular tissue. There is no drainage appreciated. There is no surrounding or extending cellulitis or increased warmth to the area or any other signs of local bacterial infection. Wound Measurements and Assessment WC - Nurse 1 - General Ulcer Measurement Start: 10/14/18 10:55 Freq: Status: Active Protocol: Activity Type Activity Date Activity User E-Sign Co-Sign Detail Recorded Client Recorded Date Recorded By Document 11/04/18 11:06 RB [id number] 11/04/18 11:16 RB 11/04/18 11:06 Wound Center Nurse 1 [Ulcer Assessment] #1 left heel -Combined with other wound No -Current Size (cm) - Length 1 -Current Size (cm) - Width 2.5 -Current Size (cm) - Depth 0.1 -Total Square Cm 2.5 -Tunneling No -Undermining/Tunneling No -Circular Undermining No -Exudate Amt Small -Exudate Type Serosanguineous -Wound Margin Distinct, Outline Attached -Granulation Amt Medium (34-66%) -Granulation Quality [place] -Slough/Fibrin Yes -Necrosis Amt Small (1-33%) -Necrotic Tissue Type Adherent Slough -Structure Exposed N/A -Texture (Deepa-wound Skin Appearance) Assessed,Callus -Moisture (Deepa-wound Skin Appearance Assessed ) -Color (Deepa-wound Skin Appearance) Assessed -Temperature (Deepa-wound Skin No Abnormality Appearance) (Pt Warm) -Tenderness on Palpation (Deepa-wound No Skin Appearance) -Ulcer Cleansing Wound Cleanser -Foul Odor after Cleansing No -Anesthetic Used 5% Lidocaine Gel [Edema Assessment] -Lower Limb Edema Present Yes -Left Calf (cm) 35 -Left Ankle (cm) 21.2 WC - Nurse 2 - General Ulcer CM Notes Start: 10/14/18 10:55 Freq: Status: Active Protocol: Activity Type Activity Date Activity User E-Sign Co-Sign Detail Recorded Client Recorded Date Recorded By Document 11/04/18 11:24 AN [id number] 11/04/18 11:29 AN 11/04/18 11:24 Wound Center Nurse 2 [Procedure/Treatment] #1 left heel -Time 11:26 -Correct Patient Yes -Correct Side, Site, Position Yes -Correct Procedure Yes -Procedure Performed Yes -Type of Procedure Debridement -Clinical Debridement Subcutaneous -Post Debridement Size (cm) - Length 1.4 -Post Debridement Size (cm) - Width 1.8 -Post Debridement Size (cm) - Depth 0.4 -Total Square Cm 2.52 -Wound/Ulcer Outcome Not Healed -Ulcer Cleansing Rinsed/ Irrigated with Saline -Foul Odor after Cleansing No -Bioengineered Tissue No -Bleeding Controlled with Pressure -Type of Offloading Surgical Shoe -Treatment Response Procedure Tolerated Well [See Physician Procedure note for Specifics] Pain Scale: 0-10 Numeric [Pain] -Is Patient Pain Free? Yes Musculoskeletal: Tenderness - Very minor tenderness with ulcer site manipulation Neurological: Sensory exam intact to light touch and pain Psych/Mental Status: Normal Affect, Appropriate Debridement Note Post-Debridement Measurements/Treatment WC - Nurse 2 - General Ulcer CM Notes Start: 10/14/18 10:55 Freq: Status: Active Protocol: Activity Type Activity Date Activity User E-Sign Co-Sign Detail Recorded Client Recorded Date Recorded By Document 10/14/18 11:19 AN [id number] 10/14/18 11:26 AN Document 10/28/18 08:42 AN [id number] 10/28/18 08:45 AN Document 11/04/18 11:24 AN [id number] 11/04/18 11:29 AN 10/14/18 10/28/18 11/04/18 11:19 08:42 11:24 Wound Center Nurse 2 #1 left heel -Time 11:19 08:43 11:26 -Correct Patient Yes Yes Yes -Correct Side, Site, Position Yes Yes Yes -Correct Procedure Yes Yes Yes -Procedure Performed Yes No Yes -Type of Procedure Debridement Debridement -Clinical Debridement Subcutaneous Subcutaneous -Post Debridement Size (cm) - Length 1.8 1.7 1.4 -Post Debridement Size (cm) - Width 2.0 2.4 1.8 -Post Debridement Size (cm) - Depth 0.2 0.4 0.4 -Total Square Cm 3.60 4.08 2.52 -Wound/Ulcer Outcome Not Healed Not Healed Not Healed -Ulcer Cleansing Rinsed/ Rinsed/ Rinsed/ Irrigated with Irrigated with Irrigated with Saline Saline Saline -Foul Odor after Cleansing No No No -Bioengineered Tissue No No -Bleeding Controlled with Pressure Pressure Pressure -Type of Offloading Surgical Shoe -Treatment Response Procedure Procedure Tolerated Well Tolerated Well Pain Scale: 0-10 Numeric Is Patient Pain Free? Yes Yes Yes Wound debrided: Left posterior heel Laterality: Left Type of Debridement: Excisional debridement Anesthesia Used: 4% Lidocaine Solution Depth: in the subcutaneous layer Percentage of wound debrided: 100 Instrument Used: 5mm curette Tissue Removed: Adherent slough, fibrotic tissue, biofilm Severity: Fat Layer Exposed Amount of bleeding with debridement: Mild Bleeding Controlled with: Pressure Patient tolerated procedure well Assessment/Plan Assessment: Decubitus ulcer left heel unstageable. Polymyositis. Fractured left ankle Plan: Patient was carefully examined and evaluated in great detail again today. Subcutaneous debridement was performed as noted in the clinical panel. The site was dressed with Aquacel Ag and a dry sterile dressing. The patient is to continue with dressing changes in this manner on a daily basis and monitor closely for any changing of ulcer site. She has been showing improvement with this over the last couple of weeks. We discussed applying for advanced wound care product of puraply and Apligraf. The importance of keeping the left heel offloaded at all times was stressed in great detail with the patient again today. She has been noncompliant in this so far. She is to be nonweightbearing to the left heel. At all times while seated or laying down the patient is to have the area completely offloaded with nothing but air touching the ulcer site. She says she understands this. LEAS and venous duplex studies were reviewed today and the patient will be referred for vascular consult to see if there is need for any further work-up at this time. Patient relates that earlier this week she saw a vascular doctor for consult, however we have not received the doctor's office note yet. We will continue to look for this and track it down. We can consider x-rays of the heel in the future if needed. All questions were answered to the patient's satisfaction today. All signs and symptoms of local and systemic infection were discussed with the patient and she was instructed to go to the emergency room immediately should she notice any of these. She is to follow back up at the wound healing center in 1 week with a different provider check on progress due to the holiday next week, but was instructed to follow-up sooner if needed.
== END 2018-11-07 23:59 ==
LOC: WC 11:00
PROVIDERS: Family Provider Internal Medicine; PCP Internal Medicine; Referring Provider Podiatrist; Visit Provider Podiatrist
DX: E11.621 Type 2 diabetes mellitus with foot ulcer (principal); L89.623 Pressure ulcer of left heel, stage 3; M33.20 Polymyositis, organ involvement unspecified; S82.892S Other fracture of left lower leg, sequela; X58.XXXS Exposure to other specified factors, sequela; Z91.19 Patient's noncompliance with other medical treatment and regimen
CPT/HCPCS: 11042; 99212; G0463

== ENCOUNTER 2018-12-02 11:00 | Outpatient (RCR) | payer MEDICARE, OTHER, SELFPAY ==
[2018-11-08 00:44] VITALS: BP 134/71; PULSE 82; RESP 18; TEMP 36.8
[2018-11-12 13:46] VITALS: BP 138/71; PULSE 91; RESP 18; TEMP 37.2; BMI 27.4
--- NOTE | 2018-11-12 18:11 | PCM.WC.HP ---
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 use status Diabetes mellitus complication status: with skin complications Diabetes mellitus complication detail: with foot ulcer Qualified Code(s): E11.621 - Type 2 diabetes mellitus with foot ulcer; L97.509 - Non-pressure chronic ulcer of other part of unspecified foot with unspecified severity Code(s): E11.9 - Type 2 diabetes mellitus without complications History of Present Illness Date of Service: 11/12/18 Chief Complaint: Follow-up on left heel ulcer History of Wound: 67-year-old white female with an autoimmune disorder is on steroids and plasma infusions fell and injured her left shoulder left upper arm humerus and left foot ankle. The fall occurred May [id number] she finally had surgery on June 142018 with plates and screws in the left ankle area she has been casted 3 times and after the last cast has developed a decubitus ulcer on her left heel from pressure. Patient was seen for all of these injuries and surgeries up in [place] and the [facility]. She says she was sent to the wound healing center at request of her primary care physician. She has been being treated by Dr. Zavala and has used Santyl but was recently changed to Aquacel Ag. She is tolerating treatment well. Purapply and Nushield were applied for but there is some uncertainty of her insurance coverage. She denies any drainage, increased pain, fever or chills or odor. Past Medical History Past Medical History: Chronic Problems Decubitus ulcer of left heel, stage 3 (Chronic) Polymyositis associated with autoimmune disease (Chronic) Diabetes type 2, controlled (Chronic) Allergies/Adverse Reactions: Allergies Penicillins Allergy (Verified 07/30/18 11:13) Hives Sulfa (Sulfonamide Antibiotics) Allergy (Verified 07/30/18 11:13) Hives Home Medications: Ambulatory Orders Medication Instructions Recorded Aldactone 25 mg PO DAILY 07/30/18 Ascorbic Acid 500 mg PO BID 07/30/18 Aspirin E.C. 81 mg PO DAILY 07/30/18 Atovaquone 750 mg PO DAILY 07/30/18 Benadryl Allergy 25 mg PO PRN PRN 07/30/18 Calcium 600 mg PO DAILY 07/30/18 Cellcept 500 mg PO BID 07/30/18 Cholecalciferol (VIT D3) 5,000 iu PO DAILY 07/30/18 Ferrous Sulfate 325 mg PO DAILY 07/30/18 Gabapentin 600 mg PO BID 07/30/18 K-Tab ER 10 meq PO TID 07/30/18 Lasix 40 mg PO BID 07/30/18 Nexium 40 mg PO DAILY 07/30/18 Nystatin 100,000 units TOPICAL 4X/DAY 07/30/18 Prednisone 5 mg PO DAILY 07/30/18 Probiotic 10,000 units PO DAILY 07/30/18 Saxagliptin HCl 5 mg PO DAILY 07/30/18 Synthroid 125 mcg PO DAILY 07/30/18 Trental 400 mg PO TID 07/30/18 Ultram 50 mg PO DAILY 07/30/18 Zomig 5 mg PO DAILY 07/30/18 - Family History Maternal No pertinent history Paternal No pertinent history Lives: Spouse/ Significant Other Smoking Status: Unknown if ever smoked Alcohol: None Drugs: None Review of Systems Constitutional: Denies: Chills, Fever, Weight Change Eyes: Denies: Pain, Vision Change HEENT: Denies: Difficulty Hearing, Difficulty Swallowing, Sinus Congestion Cardiovascular: Denies: Chest Pain, Palpitations Respiratory: Denies: Cough, Shortness of Breath Gastrointestinal: Denies: Diarrhea, Nausea, Vomiting Genitourinary: Denies: Dysuria, Hematuria Musculoskeletal: Reports: Foot Pain Skin: Reports: Wounds Endocrine: Denies: Heat/ Cold Intolerance, Polydipsia, Polyuria Hematologic/ Lymphatic: Denies: Easy Bruising, Easy Bleeding - Physical Exam Vital Signs Temp Pulse Resp BP 98.9 F 91 18 138/71 H 11/12/18 13:46 11/12/18 13:46 11/12/18 13:46 11/12/18 13:46 General: Alert, Oriented x3, Cooperative, No apparent distress HEENT: Atraumatic, Normocephalic Oral: Moist Mucosa Neck: Supple Lungs: Clear to auscultation Cardiovascular: Regular rate, Regular Rhythm Abdomen: Soft, Non Tender Extremities: Edema Skin: Ulcer/ Wound Wound Measurements and Assessment WC - Nurse 1 - General Ulcer Measurement Start: 11/12/18 13:46 Freq: Status: Active Protocol: Activity Type Activity Date Activity User E-Sign Co-Sign Detail Recorded Client Recorded Date Recorded By Document 11/12/18 13:46 RB [id number] 11/12/18 13:54 RB 11/12/18 13:46 Wound Center Nurse 1 [Ulcer Assessment] #1 left heel -Combined with other wound No -Current Size (cm) - Length 1 -Current Size (cm) - Width 1.8 -Current Size (cm) - Depth 0.2 -Total Square Cm 1.8 -Tunneling No -Undermining/Tunneling No -Circular Undermining No -Exudate Amt Small -Exudate Type Serosanguineous -Wound Margin Flat & Intact -Granulation Amt Large (67-100%) -Granulation Quality Chambers -Slough/Fibrin Yes -Necrosis Amt Small (1-33%) -Necrotic Tissue Type Adherent Slough -Structure Exposed N/A -Texture (Deepa-wound Skin Appearance) Assessed -Moisture (Deepa-wound Skin Appearance Assessed ) -Color (Deepa-wound Skin Appearance) Assessed -Temperature (Deepa-wound Skin No Abnormality Appearance) (Pt Warm) -Tenderness on Palpation (Deepa-wound No Skin Appearance) -Ulcer Cleansing Wound Cleanser -Foul Odor after Cleansing No -Anesthetic Used 5% Lidocaine Gel [Edema Assessment] -Lower Limb Edema Present Yes -Left Calf (cm) 35.2 -Left Ankle (cm) 21 WC - Nurse 2 - General Ulcer CM Notes Start: 11/12/18 13:46 Freq: Status: Active Protocol: Activity Type Activity Date Activity User E-Sign Co-Sign Detail Recorded Client Recorded Date Recorded By Document 11/12/18 14:51 DV [id number] 11/12/18 14:52 DV 11/12/18 14:51 Wound Center Nurse 2 [Procedure/Treatment] #1 left heel -Time 14:51 -Correct Patient Yes -Correct Side, Site, Position Yes -Correct Procedure Yes -Procedure Performed Yes -Type of Procedure Debridement -Clinical Debridement Subcutaneous -Post Debridement Size (cm) - Length 1.3 -Post Debridement Size (cm) - Width 1.9 -Post Debridement Size (cm) - Depth 0.3 -Total Square Cm 2.47 -Wound/Ulcer Outcome Not Healed -Ulcer Cleansing Rinsed/ Irrigated with Saline -Foul Odor after Cleansing No -Bioengineered Tissue No -Bleeding Controlled with Pressure -Offloading No -Treatment Response Procedure Tolerated Well [See Physician Procedure note for Specifics] Pain Scale: 0-10 Numeric [Pain] -Is Patient Pain Free? Yes Psych/Mental Status: Normal Affect, Appropriate Debridement Note Post-Debridement Measurements/Treatment WC - Nurse 2 - General Ulcer CM Notes Start: 11/12/18 13:46 Freq: Status: Active Protocol: Activity Type Activity Date Activity User E-Sign Co-Sign Detail Recorded Client Recorded Date Recorded By Document 11/12/18 14:51 DV [id number] 11/12/18 14:52 DV 11/12/18 14:51 Wound Center Nurse 2 #1 left heel -Time 14:51 -Correct Patient Yes -Correct Side, Site, Position Yes -Correct Procedure Yes -Procedure Performed Yes -Type of Procedure Debridement -Clinical Debridement Subcutaneous -Post Debridement Size (cm) - Length 1.3 -Post Debridement Size (cm) - Width 1.9 -Post Debridement Size (cm) - Depth 0.3 -Total Square Cm 2.47 -Wound/Ulcer Outcome Not Healed -Ulcer Cleansing Rinsed/ Irrigated with Saline -Foul Odor after Cleansing No -Bioengineered Tissue No -Bleeding Controlled with Pressure -Offloading No -Treatment Response Procedure Tolerated Well Pain Scale: 0-10 Numeric Is Patient Pain Free? Yes Wound debrided: left heel Laterality: Left Wound Grade/Stage: Stage 3 Type of Debridement: Excisional debridement Anesthesia Used: 4% Lidocaine Solution, 5% Lidocaine Gel Depth: Down to and including healthy tissue, in the subcutaneous layer Percentage of wound debrided: 100 Instrument Used: 5mm curette Tissue Removed: yellow slough, devitalized tissue Severity: Fat Layer Exposed Amount of bleeding with debridement: Mild Bleeding Controlled with: Compression and gauze Patient tolerated procedure well Assessment/Plan Active Problems Decubitus ulcer of left heel, stage 3 (Chronic) Polymyositis associated with autoimmune disease (Chronic) Diabetes type 2, controlled (Chronic) Assessment: Decubitus ulcer left heel unstageable. Polymyositis. Fractured left ankle Plan: Patient was carefully examined and evaluated in great detail again today. Subcutaneous debridement was performed as noted in the clinical panel. The site was dressed with Aquacel Ag and a dry sterile dressing. The patient is to continue with dressing changes in this manner on a daily basis and monitor closely for any changing of ulcer site. She has been showing improvement with this over the last couple of weeks. We discussed applying for advanced wound care product of puraply and Apligraf. The importance of keeping the left heel offloaded at all times was stressed in great detail with the patient again today. She has been noncompliant in this so far. She is to be nonweightbearing to the left heel. At all times while seated or laying down the patient is to have the area completely offloaded with nothing but air touching the ulcer site. She says she understands this. 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 We can consider x-rays of the heel in the future if needed but there is no current sign of infection. All questions were answered to the patient's satisfaction today. All signs and symptoms of local and systemic infection were discussed with the patient and she was instructed to go to the emergency room immediately should she notice any of these. She is to follow back up at the wound healing center in 1 week but was instructed to follow-up sooner if needed.
[2018-11-18 11:33] VITALS: BP 132/83; PULSE 110; RESP 18; TEMP 36.6; BMI 27.4
--- NOTE | 2018-11-18 14:10 | PN.PCM_ITS ---
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 Current Visit: Yes Code(s): M33.20 - Polymyositis, organ involvement unspecified; M35.9 - Systemic involvement of connective tissue, unspecified (3) Diabetes type 2, controlled Status: Chronic Current Visit: Yes Qualifiers: Diabetes mellitus termite control service representative insulin use: unspecified termite control service representative insulin use status Diabetes mellitus complication status: with skin complications Diabetes mellitus complication detail: with foot ulcer Qualified Code(s): E11.621 - Type 2 diabetes mellitus with foot ulcer; L97.509 - Non-pressure chronic ulcer of other part of unspecified foot with unspecified severity Code(s): E11.9 - Type 2 diabetes mellitus without complications (4) Delayed wound healing Status: Acute Current Visit: No Code(s): T14.8XXD - Other injury of unspecified body region, subsequent encounter Type of Wound Date of Service: 11/18/18 Chief Complaint: Follow-up on left heel ulcer History of Wound: 67-year-old white female with an autoimmune disorder is on steroids and plasma infusions fell and injured her left shoulder left upper arm humerus and left foot ankle. The fall occurred May [id number] she finally had surgery on June 142018 with plates and screws in the left ankle area she has been casted 3 times and after the last cast has developed a decubitus ulcer on her left heel from pressure. Patient was seen for all of these injuries and surgeries up in [place] and the [facility]. She says she was sent to the wound healing center at request of her primary care physician. She has been being treated by Dr. Zavala and has used Santyl but was recently changed to Aquacel Ag. She is tolerating treatment well. Purapply and Nushield were applied for but there is some uncertainty of her insurance coverage. She denies any drainage, increased pain, fever or chills or odor. Progress of Wound: Ulcer base shows continued improvement. No signs of local infection noted to left heel. Patient denies any current feelings of nausea, vomiting, fever, or chills. - Physical Exam Vital Signs Temp Pulse Resp BP 97.8 F 110 H 18 132/83 H 11/18/18 11:33 11/18/18 11:33 11/18/18 11:33 11/18/18 11:33 General: Alert, Oriented x3, Cooperative, No apparent distress Extremities: Capillary Refill Less than 3 Seconds, No Calf Tenderness - Negative Shay and Rankin signs, Diminished Peripheral Pulses - DP pulses palpable and PT pulses nonpalpable, Edema - Minor lower extremity edema Skin: Ulcer/ Wound - Pressure ulcer with fat layer exposed to the left posterior heel. The base is a mixture of adherent slough, fibrotic tissue, biofilm, and increasing amount of granular tissue. There is no drainage appreciated. There is no surrounding or extending cellulitis or increased warmth to the area or any other signs of local bacterial infection. Wound Measurements and Assessment WC - Nurse 1 - General Ulcer Measurement Start: 11/12/18 13:46 Freq: Status: Active Protocol: Activity Type Activity Date Activity User E-Sign Co-Sign Detail Recorded Client Recorded Date Recorded By Document 11/18/18 11:33 RB [id number] 11/18/18 11:41 RB 11/18/18 11:33 Wound Center Nurse 1 [Ulcer Assessment] #1 left heel -Combined with other wound No -Current Size (cm) - Length 1 -Current Size (cm) - Width 1.9 -Current Size (cm) - Depth 0.1 -Total Square Cm 1.9 -Tunneling No -Undermining/Tunneling No -Circular Undermining No -Exudate Amt Small -Exudate Type Serosanguineous -Wound Margin Flat & Intact -Granulation Amt Medium (34-66%) -Granulation Quality [place] -Slough/Fibrin Yes -Necrosis Amt Small (1-33%) -Necrotic Tissue Type Adherent Slough -Structure Exposed N/A -Texture (Deepa-wound Skin Appearance) Assessed,Callus -Moisture (Deepa-wound Skin Appearance Assessed ) -Color (Deepa-wound Skin Appearance) Assessed -Temperature (Deepa-wound Skin No Abnormality Appearance) (Pt Warm) -Tenderness on Palpation (Deepa-wound No Skin Appearance) -Ulcer Cleansing Wound Cleanser -Foul Odor after Cleansing No -Anesthetic Used 5% Lidocaine Gel [Edema Assessment] -Left Calf (cm) 33.7 -Left Ankle (cm) 20.2 WC - Nurse 2 - General Ulcer CM Notes Start: 11/12/18 13:46 Freq: Status: Active Protocol: Activity Type Activity Date Activity User E-Sign Co-Sign Detail Recorded Client Recorded Date Recorded By Document 11/18/18 12:13 [email or web address] [id number] 11/18/18 12:15 11/18/18 12:13 Wound Center Nurse 2 [Procedure/Treatment] #1 left heel -Time 12:14 -Correct Patient Yes -Correct Side, Site, Position Yes -Correct Procedure Yes -Procedure Performed Yes -Type of Procedure Debridement -Clinical Debridement Subcutaneous -Post Debridement Size (cm) - Length 1.4 -Post Debridement Size (cm) - Width 1.8 -Post Debridement Size (cm) - Depth 0.3 -Total Square Cm 2.52 -Wound/Ulcer Outcome Not Healed -Ulcer Cleansing Rinsed/ Irrigated with Saline -Foul Odor after Cleansing No -Bioengineered Tissue Yes -Type of bioengineered Tissue [id number] -Expiration Date 12/20/20 -Product Lot Number [id number] -Percent Used 100 -Saline Lot Number [id number] -Bleeding Controlled with Pressure -Offloading No -Treatment Response Procedure Tolerated Well [See Physician Procedure note for Specifics] Pain Scale: 0-10 Numeric [Pain] -Is Patient Pain Free? Yes Musculoskeletal: Tenderness - Very minor tenderness with ulcer site manipulation Neurological: Sensory exam intact to light touch and pain Psych/Mental Status: Normal Affect, Appropriate Debridement Note Post-Debridement Measurements/Treatment WC - Nurse 2 - General Ulcer CM Notes Start: 11/12/18 13:46 Freq: Status: Active Protocol: Activity Type Activity Date Activity User E-Sign Co-Sign Detail Recorded Client Recorded Date Recorded By Document 11/12/18 14:51 RAMYA [id number] 11/12/18 14:52 DV Document 11/18/18 12:13 JACKELINE [id number] 11/18/18 12:15 11/12/18 11/18/18 14:51 12:13 Wound Center Nurse 2 #1 left heel -Time 14:51 12:14 -Correct Patient Yes Yes -Correct Side, Site, Position Yes Yes -Correct Procedure Yes Yes -Procedure Performed Yes Yes -Type of Procedure Debridement Debridement -Clinical Debridement Subcutaneous Subcutaneous -Post Debridement Size (cm) - Length 1.3 1.4 -Post Debridement Size (cm) - Width 1.9 1.8 -Post Debridement Size (cm) - Depth 0.3 0.3 -Total Square Cm 2.47 2.52 -Wound/Ulcer Outcome Not Healed Not Healed -Ulcer Cleansing Rinsed/ Rinsed/ Irrigated with Irrigated with Saline Saline -Foul Odor after Cleansing No No -Bioengineered Tissue No Yes -Type of bioengineered Tissue [id number] -Expiration Date 12/20/20 -Product Lot Number [id number] -Percent Used 100 -Saline Lot Number [id number] -Bleeding Controlled with Pressure Pressure -Offloading No No -Treatment Response Procedure Procedure Tolerated Well Tolerated Well Pain Scale: 0-10 Numeric Is Patient Pain Free? Yes Yes Wound debrided: Left posterior heel Laterality: Left Type of Debridement: Excisional debridement Anesthesia Used: 4% Lidocaine Solution Depth: in the subcutaneous layer Percentage of wound debrided: 100 Instrument Used: 5mm curette Tissue Removed: Adherent slough, fibrotic tissue, biofilm Severity: Fat Layer Exposed Amount of bleeding with debridement: Mild Bleeding Controlled with: Pressure Patient tolerated procedure well Assessment/Plan Active Problems Decubitus ulcer of left heel, stage 3 (Chronic) Polymyositis associated with autoimmune disease (Chronic) Diabetes type 2, controlled (Chronic) Assessment: Decubitus ulcer left heel unstageable. Polymyositis. Fractured left ankle Plan: Patient was carefully examined and evaluated in great detail again today. Subcutaneous debridement was performed as noted in the clinical panel. The site was dressed with puraply, followed by wound veil, Steri-Strips, and a dry sterile dressing. She is to keep this dressing clean dry and intact for the next week. The importance of keeping the left heel offloaded at all times was stressed in great detail with the patient again today. She has been noncompliant in this so far. She is to be nonweightbearing to the left heel. At all times while seated or laying down the patient is to have the area completely offloaded with nothing but air touching the ulcer site. She says she understands this. 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 We can consider x-rays of the heel in the future if needed but there is no current sign of infection. All questions were answered to the patient's satisfaction today. All signs and symptoms of local and systemic infection were discussed with the patient and she was instructed to go to the emergency room immediately should she notice any of these. She is to follow back up at the wound healing center in 1 week, but was instructed to follow-up sooner if needed.
[2018-11-25 11:17] VITALS: BP 155/66; PULSE 98; RESP 18; TEMP 36.4; BMI 27.4
--- NOTE | 2018-11-25 12:11 | PCM.WC.PN ---
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 Current Visit: Yes Code(s): M33.20 - Polymyositis, organ involvement unspecified; M35.9 - Systemic involvement of connective tissue, unspecified (3) Diabetes type 2, controlled Status: Chronic Current Visit: Yes Qualifiers: Diabetes mellitus superintendent container terminal insulin use: unspecified superintendent container terminal insulin use status Diabetes mellitus complication status: with skin complications Diabetes mellitus complication detail: with foot ulcer Qualified Code(s): E11.621 - Type 2 diabetes mellitus with foot ulcer; L97.509 - Non-pressure chronic ulcer of other part of unspecified foot with unspecified severity Code(s): E11.9 - Type 2 diabetes mellitus without complications (4) Delayed wound healing Status: Acute Current Visit: No Code(s): T14.8XXD - Other injury of unspecified body region, subsequent encounter Type of Wound Date of Service: 11/25/18 Chief Complaint: Follow-up on left heel ulcer History of Wound: 67-year-old white female with an autoimmune disorder is on steroids and plasma infusions fell and injured her left shoulder left upper arm humerus and left foot ankle. The fall occurred May [id number] she finally had surgery on June 142018 with plates and screws in the left ankle area she has been casted 3 times and after the last cast has developed a decubitus ulcer on her left heel from pressure. Patient was seen for all of these injuries and surgeries up in [place] and the [facility]. She says she was sent to the wound healing center at request of her primary care physician. She has been being treated by Dr. Zavala and has used Santyl but was recently changed to Aquacel Ag. She is tolerating treatment well. Purapply and Nushield were applied for but there is some uncertainty of her insurance coverage. She denies any drainage, increased pain, fever or chills or odor. Progress of Wound: Ulcer shows continued improvement. No signs of local infection noted to left heel. Patient denies any current feelings of nausea, vomiting, fever, or chills. - Physical Exam Vital Signs Temp Pulse Resp BP 97.5 F L 98 18 155/66 H 11/25/18 11:17 07/18/19 11:17 11/25/18 11:17 11/25/18 11:17 General: Alert, Oriented x3, Cooperative, No apparent distress Extremities: Capillary Refill Less than 3 Seconds, No Calf Tenderness - Negative Shay and Rankin signs, Diminished Peripheral Pulses - DP pulses palpable and PT pulses nonpalpable, Edema - Minor lower extremity edema Skin: Ulcer/ Wound - Ulcer with fat layer exposed to the left posterior heel. The base is a mixture of adherent slough, fibrotic tissue, biofilm, and a majority of granular tissue. There is no drainage appreciated. There is no surrounding or extending cellulitis or increased warmth to the area or any other signs of local bacterial infection. Wound Measurements and Assessment WC - Nurse 1 - General Ulcer Measurement Start: 11/12/18 13:46 Freq: Status: Active Protocol: Activity Type Activity Date Activity User E-Sign Co-Sign Detail Recorded Client Recorded Date Recorded By Document 11/25/18 11:17 RB [id number] 11/25/18 11:20 RB 11/25/18 11:17 Wound Center Nurse 1 [Ulcer Assessment] #1 left heel -Combined with other wound No -Current Size (cm) - Length 1.1 -Current Size (cm) - Width 1.3 -Current Size (cm) - Depth 0.2 -Total Square Cm 1.43 -Photo Taken No -Tunneling No -Undermining/Tunneling No -Circular Undermining No -Exudate Amt Small -Exudate Type Serosanguineous -Wound Margin Distinct, Outline Attached -Granulation Amt Small (1-33%) -Granulation Quality Red -Slough/Fibrin Yes -Necrosis Amt Medium (34-66%) -Necrotic Tissue Type Adherent Slough -Structure Exposed N/A -Texture (Deepa-wound Skin Appearance) Assessed -Moisture (Deepa-wound Skin Appearance Assessed ) -Color (Deepa-wound Skin Appearance) Assessed -Temperature (Deepa-wound Skin No Abnormality Appearance) (Pt Warm) -Tenderness on Palpation (Deepa-wound No Skin Appearance) -Ulcer Cleansing Wound Cleanser -Foul Odor after Cleansing No -Anesthetic Used 5% Lidocaine Gel [Edema Assessment] -Lower Limb Edema Present Yes -Left Calf (cm) 34.8 -Left Ankle (cm) 20 WC - Nurse 2 - General Ulcer CM Notes Start: 11/12/18 13:46 Freq: Status: Active Protocol: Activity Type Activity Date Activity User E-Sign Co-Sign Detail Recorded Client Recorded Date Recorded By Document 11/25/18 11:28 AN [id number] 11/25/18 11:40 AN 11/25/18 11:28 Wound Center Nurse 2 [Procedure/Treatment] #1 left heel -Time 11:37 -Correct Patient Yes -Correct Side, Site, Position Yes -Correct Procedure Yes -Procedure Performed Yes -Type of Procedure Debridement -Clinical Debridement Subcutaneous -Post Debridement Size (cm) - Length 1.2 -Post Debridement Size (cm) - Width 1.7 -Post Debridement Size (cm) - Depth 0.3 -Total Square Cm 2.04 -Wound/Ulcer Outcome Amputation -Ulcer Cleansing Rinsed/ Irrigated with Saline -Foul Odor after Cleansing No -Bioengineered Tissue Yes -Type of bioengineered Tissue NU-SHIELD -Expiration Date 09/17/23 -Product Lot Number [id number] -Percent Used 100 -Saline Lot Number [id number] -Bleeding Controlled with Pressure -Offloading Yes -Treatment Response Procedure Tolerated Well [See Physician Procedure note for Specifics] Pain Scale: 0-10 Numeric [Pain] -Is Patient Pain Free? Yes Musculoskeletal: Tenderness - Very minor tenderness with ulcer site manipulation Neurological: Sensory exam intact to light touch and pain - With some altered lower extremity sensation Psych/Mental Status: Normal Affect, Appropriate Debridement Note Post-Debridement Measurements/Treatment WC - Nurse 2 - General Ulcer CM Notes Start: 11/12/18 13:46 Freq: Status: Active Protocol: Activity Type Activity Date Activity User E-Sign Co-Sign Detail Recorded Client Recorded Date Recorded By Document 11/12/18 14:51 DV [id number] 11/12/18 14:52 DV Document 11/18/18 12:13 JF [id number] 11/18/18 12:15 JF Document 11/25/18 11:28 AN [id number] 11/25/18 11:40 AN 11/12/18 11/18/18 11/25/18 14:51 12:13 11:28 Wound Center Nurse 2 #1 left heel -Time 14:51 12:14 11:37 -Correct Patient Yes Yes Yes -Correct Side, Site, Position Yes Yes Yes -Correct Procedure Yes Yes Yes -Procedure Performed Yes Yes Yes -Type of Procedure Debridement Debridement Debridement -Clinical Debridement Subcutaneous Subcutaneous Subcutaneous -Post Debridement Size (cm) - Length 1.3 1.4 1.2 -Post Debridement Size (cm) - Width 1.9 1.8 1.7 -Post Debridement Size (cm) - Depth 0.3 0.3 0.3 -Total Square Cm 2.47 2.52 2.04 -Wound/Ulcer Outcome Not Healed Not Healed Amputation -Ulcer Cleansing Rinsed/ Rinsed/ Rinsed/ Irrigated with Irrigated with Irrigated with Saline Saline Saline -Foul Odor after Cleansing No No No -Bioengineered Tissue No Yes Yes -Type of bioengineered Tissue [id number] NU-SHIELD -Expiration Date 12/20/20 09/17/23 -Product Lot Number [id number] -Percent Used 100 100 -Saline Lot Number [id number] -Bleeding Controlled with Pressure Pressure Pressure -Offloading No No Yes -Treatment Response Procedure Procedure Procedure Tolerated Well Tolerated Well Tolerated Well Pain Scale: 0-10 Numeric Is Patient Pain Free? Yes Yes Yes Wound debrided: Left posterior heel Laterality: Left Type of Debridement: Excisional debridement Anesthesia Used: 5% Lidocaine Gel Depth: in the subcutaneous layer Percentage of wound debrided: 100 Instrument Used: 3mm curette Tissue Removed: Adherent slough, fibrotic tissue, biofilm Severity: Fat Layer Exposed Amount of bleeding with debridement: Mild Bleeding Controlled with: Pressure Patient tolerated procedure well Assessment/Plan Active Problems Decubitus ulcer of left heel, stage 3 (Chronic) Polymyositis associated with autoimmune disease (Chronic) Diabetes type 2, controlled (Chronic) Assessment: Decubitus ulcer left heel unstageable. Polymyositis. Fractured left ankle Plan: Patient was carefully examined and evaluated in great detail again today. Subcutaneous debridement was performed as noted in the clinical panel. The site was dressed with nushield #1, followed by wound veil, Steri-Strips, and a dry sterile dressing. She is to keep this dressing clean dry and intact for the next week. The importance of keeping the left heel offloaded at all times was stressed in great detail with the patient again today. She has been noncompliant in this so far. She says she is going to find new shoes today with no back that will not rub the area. At all times while seated or laying down the patient is to have the area completely offloaded with nothing but air touching the ulcer site. She says she understands this. 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 We can consider x-rays of the heel in the future if needed but there is no current sign of infection. All questions were answered to the patient's satisfaction today. All signs and symptoms of local and systemic infection were discussed with the patient and she was instructed to go to the emergency room immediately should she notice any of these. She is to follow back up at the wound healing center in 1 week, but was instructed to follow-up sooner if needed.
[2018-12-02 11:10] VITALS: BP 134/54; PULSE 83; RESP 16; TEMP 36.8; BMI 27.4
--- NOTE | 2018-12-02 11:50 | PCM.WC.PN ---
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 Current Visit: Yes Code(s): M33.20 - Polymyositis, organ involvement unspecified; M35.9 - Systemic involvement of connective tissue, unspecified (3) Diabetes type 2, controlled Status: Chronic Current Visit: Yes Qualifiers: Diabetes mellitus rn medical surgical insulin use: unspecified rn medical surgical insulin use status Diabetes mellitus complication status: with skin complications Diabetes mellitus complication detail: with foot ulcer Qualified Code(s): E11.621 - Type 2 diabetes mellitus with foot ulcer; L97.509 - Non-pressure chronic ulcer of other part of unspecified foot with unspecified severity Code(s): E11.9 - Type 2 diabetes mellitus without complications (4) Delayed wound healing Status: Acute Current Visit: No Code(s): T14.8XXD - Other injury of unspecified body region, subsequent encounter Type of Wound Date of Service: 12/02/18 Chief Complaint: Follow-up on left heel ulcer History of Wound: 67-year-old white female with an autoimmune disorder is on steroids and plasma infusions fell and injured her left shoulder left upper arm humerus and left foot ankle. The fall occurred May [id number] she finally had surgery on June 142018 with plates and screws in the left ankle area she has been casted 3 times and after the last cast has developed a decubitus ulcer on her left heel from pressure. Patient was seen for all of these injuries and surgeries up in [place] and the [facility]. She says she was sent to the wound healing center at request of her primary care physician. She has been being treated by Dr. Zavala and has used Santyl but was recently changed to Aquacel Ag. She is tolerating treatment well. Purapply and Nushield were applied for but there is some uncertainty of her insurance coverage. She denies any drainage, increased pain, fever or chills or odor. Progress of Wound: Improvement noted again this week. No signs of local infection noted to left heel. Patient denies any current feelings of nausea, vomiting, fever, or chills. - Physical Exam Vital Signs Temp Pulse Resp BP 98.2 F 83 16 134/54 H 12/02/18 11:10 07/25/19 11:10 12/02/18 11:10 12/02/18 11:10 General: Alert, Oriented x3, Cooperative, No apparent distress Extremities: Capillary Refill Less than 3 Seconds, No Calf Tenderness - Negative Shay and Rankin signs, Diminished Peripheral Pulses - DP pulses palpable and PT pulses nonpalpable, Edema - Mild lower extremity edema Skin: Ulcer/ Wound - Ulcer with fat layer exposed to the left posterior heel. The base continues to be a mixture of adherent slough, fibrotic tissue, biofilm, and a majority of granular tissue. There is no drainage appreciated. There is no surrounding or extending cellulitis or increased warmth to the area or any other signs of local bacterial infection. Wound Measurements and Assessment WC - Nurse 1 - General Ulcer Measurement Start: 11/12/18 13:46 Freq: Status: Active Protocol: Activity Type Activity Date Activity User E-Sign Co-Sign Detail Recorded Client Recorded Date Recorded By Document 12/02/18 11:10 [facility] [id number] 12/02/18 11:19 [facility] 12/02/18 11:10 Wound Center Nurse 1 [Ulcer Assessment] #1 left heel -Combined with other wound No -Current Size (cm) - Length 0.9 -Current Size (cm) - Width 1.3 -Current Size (cm) - Depth 0.2 -Total Square Cm 1.17 -Date of Last Picture (Recall this 12/02/18 field) -Photo Taken Yes -Epithelialization None Present -Tunneling No -Undermining/Tunneling No -Circular Undermining No -Exudate Amt Small -Exudate Type Serous -Wound Margin Distinct, Outline Attached -Granulation Amt Small (1-33%) -Granulation Quality Red -Slough/Fibrin Yes -Necrosis Amt Large (67-100%) -Necrotic Tissue Type Adherent Slough -Texture (Deepa-wound Skin Appearance) Assessed, Scarring -Moisture (Deepa-wound Skin Appearance Assessed,Dry/ ) Scaly -Color (Deepa-wound Skin Appearance) Assessed -Temperature (Deepa-wound Skin No Abnormality Appearance) (Pt Warm) -Tenderness on Palpation (Deepa-wound Yes Skin Appearance) -Ulcer Cleansing soap and water -Foul Odor after Cleansing No -Anesthetic Used 5% Lidocaine Gel [Edema Assessment] -Lower Limb Edema Present Yes -Left Calf (cm) 34.1 -Left Ankle (cm) 21.6 - Nurse 2 - General Ulcer CM Notes Start: 11/12/18 13:46 Freq: Status: Active Protocol: Activity Type Activity Date Activity User E-Sign Co-Sign Detail Recorded Client Recorded Date Recorded By Document 12/02/18 11:37 AN [id number] 12/02/18 11:38 AN 12/02/18 11:37 Wound Center Nurse 2 [Procedure/Treatment] #1 left heel -Time 11:37 -Correct Patient Yes -Correct Side, Site, Position Yes -Correct Procedure Yes -Procedure Performed Yes -Type of Procedure Debridement -Clinical Debridement Subcutaneous -Post Debridement Size (cm) - Length 0.9 -Post Debridement Size (cm) - Width 1.5 -Post Debridement Size (cm) - Depth 0.3 -Total Square Cm 1.35 -Wound/Ulcer Outcome Not Healed -Ulcer Cleansing Rinsed/ Irrigated with Saline -Foul Odor after Cleansing No -Bioengineered Tissue Yes -Type of bioengineered Tissue NU-SHIELD -Expiration Date 09/23/23 -Product Lot Number [id number] -Percent Used 100 -Saline Lot Number [id number] -Bleeding Controlled with Pressure -Offloading No -Treatment Response Procedure Tolerated Well [See Physician Procedure note for Specifics] Pain Scale: 0-10 Numeric [Pain] -Is Patient Pain Free? Yes Musculoskeletal: Tenderness - Very minor tenderness with ulcer site manipulation Neurological: Sensory exam intact to light touch and pain - With some altered lower extremity sensation Psych/Mental Status: Normal Affect, Appropriate Debridement Note Post-Debridement Measurements/Treatment - Nurse 2 - General Ulcer CM Notes Start: 11/12/18 13:46 Freq: Status: Active Protocol: Activity Type Activity Date Activity User E-Sign Co-Sign Detail Recorded Client Recorded Date Recorded By Document 11/12/18 14:51 DV [id number] 11/12/18 14:52 DV Document 11/18/18 12:13 JF [id number] 11/18/18 12:15 JF Document 11/25/18 11:28 AN [id number] 11/25/18 11:40 AN Document 12/02/18 11:37 AN [id number] 12/02/18 11:38 AN 11/12/18 11/18/18 11/25/18 14:51 12:13 11:28 Wound Center Nurse 2 #1 left heel -Time 14:51 12:14 11:37 -Correct Patient Yes Yes Yes -Correct Side, Site, Position Yes Yes Yes -Correct Procedure Yes Yes Yes -Procedure Performed Yes Yes Yes -Type of Procedure Debridement Debridement Debridement -Clinical Debridement Subcutaneous Subcutaneous Subcutaneous -Post Debridement Size (cm) - Length 1.3 1.4 1.2 -Post Debridement Size (cm) - Width 1.9 1.8 1.7 -Post Debridement Size (cm) - Depth 0.3 0.3 0.3 -Total Square Cm 2.47 2.52 2.04 -Wound/Ulcer Outcome Not Healed Not Healed Amputation -Ulcer Cleansing Rinsed/ Rinsed/ Rinsed/ Irrigated with Irrigated with Irrigated with Saline Saline Saline -Foul Odor after Cleansing No No No -Bioengineered Tissue No Yes Yes -Type of bioengineered Tissue [id number] NU-SHIELD -Expiration Date 12/20/20 09/17/23 -Product Lot Number [id number]-[id number] -Percent Used 100 100 -Saline Lot Number [id number] -Bleeding Controlled with Pressure Pressure Pressure -Offloading No No Yes -Treatment Response Procedure Procedure Procedure Tolerated Well Tolerated Well Tolerated Well Pain Scale: 0-10 Numeric Is Patient Pain Free? Yes Yes Yes 12/02/18 11:37 Wound Center Nurse 2 #1 left heel -Time 11:37 -Correct Patient Yes -Correct Side, Site, Position Yes -Correct Procedure Yes -Procedure Performed Yes -Type of Procedure Debridement -Clinical Debridement Subcutaneous -Post Debridement Size (cm) - Length 0.9 -Post Debridement Size (cm) - Width 1.5 -Post Debridement Size (cm) - Depth 0.3 -Total Square Cm 1.35 -Wound/Ulcer Outcome Not Healed -Ulcer Cleansing Rinsed/ Irrigated with Saline -Foul Odor after Cleansing No -Bioengineered Tissue Yes -Type of bioengineered Tissue NU-SHIELD -Expiration Date 09/23/23 -Product Lot Number [id number] -Percent Used 100 -Saline Lot Number [id number] -Bleeding Controlled with Pressure -Offloading No -Treatment Response Procedure Tolerated Well Pain Scale: 0-10 Numeric Is Patient Pain Free? Yes Wound debrided: Left posterior heel Laterality: Left Type of Debridement: Excisional debridement Anesthesia Used: 5% Lidocaine Gel Depth: in the subcutaneous layer Percentage of wound debrided: 100 Instrument Used: 3mm curette Tissue Removed: Adherent slough, fibrotic tissue, biofilm Severity: Fat Layer Exposed Amount of bleeding with debridement: Mild Bleeding Controlled with: Pressure Patient tolerated procedure well Assessment/Plan Active Problems Decubitus ulcer of left heel, stage 3 (Chronic) Polymyositis associated with autoimmune disease (Chronic) Diabetes type 2, controlled (Chronic) Assessment: Decubitus ulcer left heel unstageable. Polymyositis. Fractured left ankle Plan: Patient was carefully examined and evaluated in great detail again today. Subcutaneous debridement was performed as noted in the clinical panel. The site was dressed with nushield #2, followed by wound veil, Steri-Strips, and a dry sterile dressing. She is to keep this dressing clean dry and intact for the next week. The importance of keeping the left heel offloaded at all times was stressed in great detail with the patient again today. She has been noncompliant in this so far. She says she is going to find new shoes today with no back that will not rub the area. At all times while seated or laying down the patient is to have the area completely offloaded with nothing but air touching the ulcer site. She says she understands this. 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 We can consider x-rays of the heel in the future if needed but there is no current sign of infection. All questions were answered to the patient's satisfaction today. All signs and symptoms of local and systemic infection were discussed with the patient and she was instructed to go to the emergency room immediately should she notice any of these. She is to follow back up at the wound healing center in 1 week, but was instructed to follow-up sooner if needed.
== END 2018-12-08 23:59 ==
LOC: WC 11:00
PROVIDERS: Family Provider Internal Medicine; PCP Internal Medicine; Referring Provider Podiatrist; Visit Provider Podiatrist
DX: E11.621 Type 2 diabetes mellitus with foot ulcer (principal); L89.623 Pressure ulcer of left heel, stage 3; M33.20 Polymyositis, organ involvement unspecified; D89.89 Other specified disorders involving the immune mechanism, not elsewhere classified; Z79.52 Long term (current) use of systemic steroids; S82.892S Other fracture of left lower leg, sequela; Z91.19 Patient's noncompliance with other medical treatment and regimen; W19.XXXS Unspecified fall, sequela
CPT/HCPCS: 11042; 15275; Q4160; Q4196

== ENCOUNTER 2019-01-06 10:15 | Outpatient (RCR) | payer MEDICARE, OTHER, SELFPAY ==
[2018-12-09 00:45] VITALS: BP 134/54; PULSE 83; RESP 16; TEMP 36.8
[2018-12-09 10:37] VITALS: BP 135/70; PULSE 86; RESP 16; TEMP 37.1; BMI 27.4
--- NOTE | 2018-12-09 12:02 | PN.PCM_ITS ---
(1) Decubitus ulcer of left heel, stage 3 Status: Chronic Current Visit: No Code(s): L89.623 - Pressure ulcer of left heel, stage 3 (2) Polymyositis associated with autoimmune disease Status: Chronic Current Visit: No Code(s): M33.20 - Polymyositis, organ involvement unspecified; M35.9 - Systemic involvement of connective tissue, unspecified (3) Diabetes type 2, controlled Status: Chronic Current Visit: No Qualifiers: Code(s): E11.9 - Type 2 diabetes mellitus without complications (4) Delayed wound healing Status: Acute Current Visit: No Code(s): T14.8XXD - Other injury of unspecified body region, subsequent encounter Type of Wound Date of Service: 12/09/18 Chief Complaint: Follow-up on left heel ulcer History of Wound: 67-year-old white female with an autoimmune disorder is on steroids and plasma infusions fell and injured her left shoulder left upper arm humerus and left foot ankle. The fall occurred May 312018 she finally had surgery on June 142018 with plates and screws in the left ankle area she has been casted 3 times and after the last cast has developed a decubitus ulcer on her left heel from pressure. Patient was seen for all of these injuries and surgeries up in [place] and the [facility]. She says she was sent to the wound healing center at request of her primary care physician. She has been being treated by Dr. Zavala and has used Santyl but was recently changed to Aquacel Ag. She is tolerating treatment well. Purapply and Nushield were applied for but there is some uncertainty of her insurance coverage. She denies any drainage, increased pain, fever or chills or odor. Progress of Wound: Continued improvement noted. No signs of local infection noted to left heel. Patient denies any current feelings of nausea, vomiting, fever, or chills. - Physical Exam Vital Signs Temp Pulse Resp BP 98.7 F 86 16 135/70 H 12/09/18 10:37 12/09/18 10:37 12/09/18 10:37 12/09/18 10:37 General: Alert, Oriented x3, Cooperative, No apparent distress Extremities: Capillary Refill Less than 3 Seconds, No Calf Tenderness - Negative Shay and Rankin signs, Diminished Peripheral Pulses - DP pulses palpable and PT pulses nonpalpable, Edema - Mild lower extremity edema Skin: Ulcer/ Wound - Ulcer with fat layer exposed to the left posterior heel. The base continues to be a mixture of adherent slough, fibrotic tissue, biofilm, and a majority of granular tissue. There is no drainage appreciated. There is no surrounding or extending cellulitis or increased warmth to the area or any other signs of local bacterial infection. Wound Measurements and Assessment WC - Nurse 1 - General Ulcer Measurement Start: 12/09/18 10:37 Freq: Status: Active Protocol: Activity Type Activity Date Activity User E-Sign Co-Sign Detail Recorded Client Recorded Date Recorded By Document 12/09/18 10:37 BS [id number] 12/09/18 10:49 BS 12/09/18 10:37 Wound Center Nurse 1 [Ulcer Assessment] #1 left heel -Combined with other wound No -Current Size (cm) - Length 0.7 -Current Size (cm) - Width 1.5 -Current Size (cm) - Depth 0.3 -Total Square Cm 1.05 -Texture (Deepa-wound Skin Appearance) Assessed, Scarring -Moisture (Deepa-wound Skin Appearance Assessed,Dry/ ) Scaly -Color (Deepa-wound Skin Appearance) Assessed, Hemosiderin Staining -Temperature (Deepa-wound Skin No Abnormality Appearance) (Pt Warm) -Tenderness on Palpation (Deepa-wound No Skin Appearance) -Ulcer Cleansing Rinsed/ Irrigated with Saline -Foul Odor after Cleansing No -Anesthetic Used 5% Lidocaine Gel [Edema Assessment] -Point of measurement (cm from the 34.0 medial instep) -Point of Measurement (cm from the 21.0 medial instep) WC - Nurse 2 - General Ulcer CM Notes Start: 12/09/18 10:37 Freq: Status: Active Protocol: Activity Type Activity Date Activity User E-Sign Co-Sign Detail Recorded Client Recorded Date Recorded By Document 12/09/18 11:17 AN [id number] 12/09/18 11:21 AN 12/09/18 11:17 Wound Center Nurse 2 [Procedure/Treatment] #1 left heel -Time 11:18 -Correct Patient Yes -Correct Side, Site, Position Yes -Correct Procedure Yes -Procedure Performed Yes -Type of Procedure Debridement -Clinical Debridement Subcutaneous -Post Debridement Size (cm) - Length 0.7 -Post Debridement Size (cm) - Width 1.3 -Post Debridement Size (cm) - Depth 0.3 -Total Square Cm 0.91 -Wound/Ulcer Outcome Not Healed -Ulcer Cleansing Rinsed/ Irrigated with Saline -Foul Odor after Cleansing No -Bioengineered Tissue No -Type of bioengineered Tissue NU-SHIELD -Expiration Date 08/31/23 -Product Lot Number [id number] -Percent Used 100 -Saline Lot Number [id number] -Bleeding Controlled with Pressure -Offloading No -Treatment Response Procedure Tolerated Well [See Physician Procedure note for Specifics] Pain Scale: 0-10 Numeric [Pain] -Is Patient Pain Free? Yes Musculoskeletal: Tenderness - Very minor tenderness with ulcer site manipulation Neurological: Sensory exam intact to light touch and pain - With some altered lower extremity sensation noted Psych/Mental Status: Normal Affect, Appropriate Debridement Note Post-Debridement Measurements/Treatment WC - Nurse 2 - General Ulcer CM Notes Start: 12/09/18 10:37 Freq: Status: Active Protocol: Activity Type Activity Date Activity User E-Sign Co-Sign Detail Recorded Client Recorded Date Recorded By Document 12/09/18 11:17 AN [id number] 12/09/18 11:21 AN 12/09/18 11:17 Wound Center Nurse 2 #1 left heel -Time 11:18 -Correct Patient Yes -Correct Side, Site, Position Yes -Correct Procedure Yes -Procedure Performed Yes -Type of Procedure Debridement -Clinical Debridement Subcutaneous -Post Debridement Size (cm) - Length 0.7 -Post Debridement Size (cm) - Width 1.3 -Post Debridement Size (cm) - Depth 0.3 -Total Square Cm 0.91 -Wound/Ulcer Outcome Not Healed -Ulcer Cleansing Rinsed/ Irrigated with Saline -Foul Odor after Cleansing No -Bioengineered Tissue No -Type of bioengineered Tissue Zephyr-SHIELD -Expiration Date 08/31/23 -Product Lot Number [id number] -Percent Used 100 -Saline Lot Number [id number] -Bleeding Controlled with Pressure -Offloading No -Treatment Response Procedure Tolerated Well Pain Scale: 0-10 Numeric Is Patient Pain Free? Yes Wound debrided: Left posterior heel Laterality: Left Type of Debridement: Excisional debridement Anesthesia Used: 5% Lidocaine Gel Depth: in the subcutaneous layer Percentage of wound debrided: 100 Instrument Used: 3mm curette Tissue Removed: Adherent slough, fibrotic tissue, biofilm Severity: Fat Layer Exposed Amount of bleeding with debridement: Mild Bleeding Controlled with: Pressure Patient tolerated procedure well Assessment/Plan Assessment: Decubitus ulcer left heel unstageable. Polymyositis. Fractured left ankle Plan: Patient was carefully examined and evaluated again today. Subcutaneous debridement was performed as noted in the clinical panel. The site was dressed with nushield #3, followed by wound veil, Steri-Strips, and a dry sterile dressing. She is to keep this dressing clean dry and intact for the next week. The importance of keeping the left heel offloaded at all times was stressed in great detail with the patient again today. She has been noncompliant in this so far. At all times while seated or laying down the patient is to have the area completely offloaded with nothing but air touching the ulcer site. She says she understands this. 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 We can consider x-rays of the heel in the future if needed but there is no current sign of infection. All questions were answered to the patient's satisfaction today. All signs and symptoms of local and systemic infection were discussed with the patient and she was instructed to go to the emergency room immediately should she notice any of these. She is to follow back up at the wound healing center in 1 week, but was instructed to follow-up sooner if needed.
[2018-12-15 13:40] VITALS: BP 140/63; PULSE 93; RESP 18; TEMP 36.9; BMI 27.4
--- NOTE | 2018-12-15 15:20 | PN.PCM_ITS ---
(1) Decubitus ulcer of left heel, stage 3 Status: Chronic Current Visit: Yes Code(s): L89.623 - Pressure ulcer of left heel, stage 3 (2) Chronic ulcer of left foot with fat layer exposed Status: Chronic Current Visit: Yes Code(s): L97.522 - Non-pressure chronic ulcer of other part of left foot with fat layer exposed (3) Type 2 diabetes mellitus with diabetic polyneuropathy Status: Chronic Current Visit: Yes Code(s): E11.42 - Type 2 diabetes mellitus with diabetic polyneuropathy (4) Delayed wound healing Status: Chronic Current Visit: Yes Code(s): T14.8XXD - Other injury of unspecified body region, subsequent encounter Type of Wound Date of Service: 12/15/18 Chief Complaint: Follow-up on left heel ulcer History of Wound: 68-year-old white female with an autoimmune disorder is on steroids and plasma infusions fell and injured her left shoulder left upper arm humerus and left foot ankle. The fall occurred May [id number] she finally had surgery on June 142018 with plates and screws in the left ankle area she has been casted 3 times and after the last cast has developed a decubitus ulcer on her left heel from pressure. Patient was seen for all of these injuries and surgeries up in [place] and the [facility]. She says she was sent to the wound healing center at request of her primary care physician. She is recently had [employer], advanced wound healing product, applications. She denies any drainage, increased pain, fever or chills or odor. Progress of Wound: Continued improvement noted. No signs of local infection noted to left heel. Patient denies any current feelings of nausea, vomiting, fever, or chills. - Physical Exam Vital Signs Temp Pulse Resp BP 98.4 F 93 18 140/63 H 12/15/18 13:40 12/15/18 13:40 12/15/18 13:40 12/15/18 13:40 General: Alert, Oriented x3, Cooperative, No apparent distress HEENT: Atraumatic Extremities: No cyanosis, Capillary Refill Less than 3 Seconds, No Calf Tenderness, Diminished Peripheral Pulses, Edema - Mild Skin: Ulcer/ Wound - No purulence, erythema, streaking, odor, infection. Peripheral skin is hairless and atrophic. There is granulation tissue noted Wound Measurements and Assessment WC - Nurse 1 - General Ulcer Measurement Start: 12/09/18 10:37 Freq: Status: Active Protocol: Activity Type Activity Date Activity User E-Sign Co-Sign Detail Recorded Client Recorded Date Recorded By Document 12/15/18 13:40 RB [id number] 12/15/18 13:49 RB 12/15/18 13:40 Wound Center Nurse 1 [Ulcer Assessment] #1 left heel -Combined with other wound No -Current Size (cm) - Length 0.5 -Current Size (cm) - Width 1.2 -Current Size (cm) - Depth 0.2 -Total Square Cm 0.60 -Tunneling No -Undermining/Tunneling No -Circular Undermining No -Exudate Amt Small -Exudate Type Serosanguineous -Wound Margin Flat & Intact -Granulation Amt Medium (34-66%) -Granulation Quality [place] -Slough/Fibrin Yes -Necrosis Amt Medium (34-66%) -Necrotic Tissue Type Adherent Slough -Structure Exposed N/A -Texture (Deepa-wound Skin Appearance) Assessed,Callus -Moisture (Deepa-wound Skin Appearance Assessed ) -Color (Deepa-wound Skin Appearance) Assessed -Temperature (Deepa-wound Skin No Abnormality Appearance) (Pt Warm) -Tenderness on Palpation (Deepa-wound No Skin Appearance) -Ulcer Cleansing Wound Cleanser -Foul Odor after Cleansing No -Anesthetic Used 5% Lidocaine Gel [Edema Assessment] -Lower Limb Edema Present Yes -Left Calf (cm) 34 -Left Ankle (cm) 26.5 - Nurse 2 - General Ulcer CM Notes Start: 12/09/18 10:37 Freq: Status: Active Protocol: Activity Type Activity Date Activity User E-Sign Co-Sign Detail Recorded Client Recorded Date Recorded By Document 12/15/18 14:18 AN [id number] 12/15/18 14:26 AN 12/15/18 14:18 Wound Center Nurse 2 [Procedure/Treatment] #1 left heel -Time 14:25 -Correct Patient Yes -Correct Side, Site, Position Yes -Correct Procedure Yes -Procedure Performed Yes -Type of Procedure Debridement -Clinical Debridement Subcutaneous -Post Debridement Size (cm) - Length 0.6 -Post Debridement Size (cm) - Width 1.3 -Post Debridement Size (cm) - Depth 0.2 -Total Square Cm 0.78 -Wound/Ulcer Outcome Not Healed -Ulcer Cleansing Rinsed/ Irrigated with Saline -Foul Odor after Cleansing No -Bioengineered Tissue Yes -Type of bioengineered Tissue NU-SHIELD [See Physician Procedure note for Specifics] Pain Scale: 0-10 Numeric [Pain] -Is Patient Pain Free? Yes Musculoskeletal: No Tenderness to Palpation of Joints or Extremities, Muscle Wasting Neurological: - - Lack of epicritic sensation light touch consistent with neuropathy Psych/Mental Status: Normal Affect, Appropriate Debridement Note Post-Debridement Measurements/Treatment WC - Nurse 2 - General Ulcer CM Notes Start: 12/09/18 10:37 Freq: Status: Active Protocol: Activity Type Activity Date Activity User E-Sign Co-Sign Detail Recorded Client Recorded Date Recorded By Document 12/09/18 11:17 AN [id number] 12/09/18 11:21 AN Document 12/15/18 14:18 AN [id number] 12/15/18 14:26 AN 12/09/18 12/15/18 11:17 14:18 Wound Center Nurse 2 #1 left heel -Time 11:18 14:25 -Correct Patient Yes Yes -Correct Side, Site, Position Yes Yes -Correct Procedure Yes Yes -Procedure Performed Yes Yes -Type of Procedure Debridement Debridement -Clinical Debridement Subcutaneous Subcutaneous -Post Debridement Size (cm) - Length 0.7 0.6 -Post Debridement Size (cm) - Width 1.3 1.3 -Post Debridement Size (cm) - Depth 0.3 0.2 -Total Square Cm 0.91 0.78 -Wound/Ulcer Outcome Not Healed Not Healed -Ulcer Cleansing Rinsed/ Rinsed/ Irrigated with Irrigated with Saline Saline -Foul Odor after Cleansing No No -Bioengineered Tissue No Yes -Type of bioengineered Tissue NU-SHIELD NU-SHIELD -Expiration Date 08/31/23 -Product Lot Number [id number] -Percent Used 100 -Saline Lot Number [id number] -Bleeding Controlled with Pressure -Offloading No -Treatment Response Procedure Tolerated Well Pain Scale: 0-10 Numeric Is Patient Pain Free? Yes Yes Wound debrided: posterior heel Laterality: Left Wound Grade/Stage: grade 1 Type of Debridement: Excisional debridement Anesthesia Used: 5% Lidocaine Gel Depth: in the subcutaneous layer Percentage of wound debrided: 100 Instrument Used: #15 blade Tissue Removed: fibrous, devitalized subcutaneous, biofilm, slough Severity: Fat Layer Exposed Amount of bleeding with debridement: Mild Bleeding Controlled with: Pressure Patient tolerated procedure well Assessment/Plan Active Problems Decubitus ulcer of left heel, stage 3 (Chronic) Delayed wound healing (Chronic) Type 2 diabetes mellitus with diabetic polyneuropathy (Chronic) Chronic ulcer of left foot with fat layer exposed (Chronic) Assessment: Decubitus ulcer left heel unstageable. Carter grade 1 diabetic foot ulcer with fat layer exposed, no infection. Polymyositis. Fractured left ankle Plan: Patient was carefully examined and evaluated again today. Subcutaneous debridement was performed as noted in the clinical panel. The site was dressed with nushield #4, followed by wound veil, Steri-Strips, and a dry sterile dressing. She is to keep this dressing clean dry and intact for the next week. The importance of keeping the left heel offloaded at all times was stressed in great detail with the patient again today. She has been noncompliant in this so far. At all times while seated or laying down the patient is to have the area completely offloaded with nothing but air touching the ulcer site. She says she understands this. 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 We can consider x-rays of the heel in the future if needed but there is no current sign of infection. All questions were answered to the patient's satisfaction today. All signs and symptoms of local and systemic infection were discussed with the patient and she was instructed to go to the emergency room immediately should she notice any of these. A prescription for offloading donut pillow was provided today to keep additional pressure off of the site to facilitate timely healing. She is to follow back up at the wound healing center in 1 week, but was instructed to follow-up sooner if needed.
[2018-12-24 13:42] VITALS: BP 146/68; PULSE 104; RESP 18; TEMP 37.2; BMI 27.4
--- NOTE | 2018-12-24 16:50 | PCM.WC.PN ---
(1) Decubitus ulcer of left heel, stage 3 Status: Resolved Current Visit: Yes Code(s): L89.623 - Pressure ulcer of left heel, stage 3 (2) Chronic ulcer of left foot with fat layer exposed Status: Chronic Current Visit: Yes Code(s): L97.522 - Non-pressure chronic ulcer of other part of left foot with fat layer exposed (3) Type 2 diabetes mellitus with diabetic polyneuropathy Status: Chronic Current Visit: Yes Code(s): E11.42 - Type 2 diabetes mellitus with diabetic polyneuropathy Type of Wound Date of Service: 12/24/18 Chief Complaint: Follow-up on left heel ulcer History of Wound: 68-year-old white female with an autoimmune disorder is on steroids and plasma infusions fell and injured her left shoulder left upper arm humerus and left foot ankle. The fall occurred May 312018 she finally had surgery on June 142018 with plates and screws in the left ankle area she has been casted 3 times and after the last cast has developed a decubitus ulcer on her left heel from pressure. Patient was seen for all of these injuries and surgeries up in [place] and the [facility]. She says she was sent to the wound healing center at request of her primary care physician. She is recently had [employer], advanced wound healing product, applications. She denies any drainage, increased pain, fever or chills or odor. Progress of Wound: Healed today - Physical Exam Vital Signs Temp Pulse Resp BP 98.9 F 104 H 18 146/68 H 12/24/18 13:42 12/24/18 13:42 12/24/18 13:42 12/24/18 13:42 General: Alert, Oriented x3, Cooperative, No apparent distress HEENT: Atraumatic Extremities: No cyanosis, No edema, Capillary Refill Less than 3 Seconds, No Calf Tenderness, Diminished Peripheral Pulses Skin: Ulcer/ Wound - Full epithelialization is noted. There is no purulence, erythema, streaking, odor, or infection. The ulcer site appears healed and there are no new ulcers Wound Measurements and Assessment WC - Nurse 1 - General Ulcer Measurement Start: 12/09/18 10:37 Freq: Status: Active Protocol: Activity Type Activity Date Activity User E-Sign Co-Sign Detail Recorded Client Recorded Date Recorded By Document 12/24/18 13:42 [facility] [id number] 12/24/18 13:45 [facility] 12/24/18 13:42 Wound Center Nurse 1 [Ulcer Assessment] #1 left heel -Combined with other wound No -Current Size (cm) - Length 0.1 -Current Size (cm) - Width 0.1 -Current Size (cm) - Depth 0.1 -Total Square Cm 0.01 -Tunneling No -Undermining/Tunneling No -Circular Undermining No -Exudate Amt Small -Exudate Type Serosanguineous -Wound Margin Flat & Intact -Granulation Amt Medium (34-66%) -Granulation Quality [place] -Slough/Fibrin Yes -Necrosis Amt Small (1-33%) -Necrotic Tissue Type Adherent Slough -Structure Exposed N/A -Texture (Deepa-wound Skin Appearance) Assessed,Callus ,Scarring -Moisture (Deepa-wound Skin Appearance Assessed ) -Color (Deepa-wound Skin Appearance) Assessed -Temperature (Deepa-wound Skin No Abnormality Appearance) (Pt Warm) -Tenderness on Palpation (Deepa-wound No Skin Appearance) -Ulcer Cleansing Rinsed/ Irrigated with Saline -Foul Odor after Cleansing No -Anesthetic Used 5% Lidocaine Gel [Edema Assessment] -Lower Limb Edema Present Yes -Left Calf (cm) 34.3 -Left Ankle (cm) 20.3 WC - Nurse 2 - General Ulcer CM Notes Start: 12/09/18 10:37 Freq: Status: Active Protocol: Activity Type Activity Date Activity User E-Sign Co-Sign Detail Recorded Client Recorded Date Recorded By Document 12/24/18 14:16 [id number] 12/24/18 14:18 DV 12/24/18 14:16 Wound Center Nurse 2 [Procedure/Treatment] #1 left heel -Time 14:17 -Correct Patient Yes -Correct Side, Site, Position Yes -Correct Procedure No -Procedure Performed No -Post Debridement Size (cm) - Length 0 -Post Debridement Size (cm) - Width 0 -Post Debridement Size (cm) - Depth 0 -Total Square Cm 0 -Wound/Ulcer Outcome Healed- Epithelialized [See Physician Procedure note for Specifics] Pain Scale: 0-10 Numeric [Pain] -Is Patient Pain Free? Yes Musculoskeletal: No Tenderness to Palpation of Joints or Extremities, Muscle Wasting Psych/Mental Status: Normal Affect, Appropriate Debridement Note Post-Debridement Measurements/Treatment WC - Nurse 2 - General Ulcer CM Notes Start: 12/09/18 10:37 Freq: Status: Active Protocol: Activity Type Activity Date Activity User E-Sign Co-Sign Detail Recorded Client Recorded Date Recorded By Document 12/09/18 11:17 AN [id number] 12/09/18 11:21 AN Document 12/15/18 14:18 AN [id number] 12/15/18 14:26 AN Document 12/24/18 14:16 DV [id number] 12/24/18 14:18 DV 12/09/18 12/15/18 12/24/18 11:17 14:18 14:16 Wound Center Nurse 2 #1 left heel -Time 11:18 14:25 14:17 -Correct Patient Yes Yes Yes -Correct Side, Site, Position Yes Yes Yes -Correct Procedure Yes Yes No -Procedure Performed Yes Yes No -Type of Procedure Debridement Debridement -Clinical Debridement Subcutaneous Subcutaneous -Post Debridement Size (cm) - Length 0.7 0.6 0 -Post Debridement Size (cm) - Width 1.3 1.3 0 -Post Debridement Size (cm) - Depth 0.3 0.2 0 -Total Square Cm 0.91 0.78 0 -Wound/Ulcer Outcome Not Healed Not Healed Healed- Epithelialized -Ulcer Cleansing Rinsed/ Rinsed/ Irrigated with Irrigated with Saline Saline -Foul Odor after Cleansing No No -Bioengineered Tissue No Yes -Type of bioengineered Tissue NU-SHIELD NU-SHIELD -Expiration Date 08/31/23 -Product Lot Number [id number] -Percent Used 100 -Saline Lot Number [id number] -Bleeding Controlled with Pressure -Offloading No -Treatment Response Procedure Tolerated Well Pain Scale: 0-10 Numeric Is Patient Pain Free? Yes Yes Yes No debridement was completed today - healed today Assessment/Plan Active Problems Type 2 diabetes mellitus with diabetic polyneuropathy (Chronic) Chronic ulcer of left foot with fat layer exposed (Chronic) Assessment: Decubitus ulcer left heel unstageable-healed today. Su grade 1 diabetic foot ulcer with fat layer exposed, no infection-healed today. Polymyositis significant past medical history. Fractured left ankle remote Plan: Patient was carefully examined and evaluated again today. Debridement was not performed because the ulcer site is healed. It is okay to cover the site with a dry gauze to allow continued skin remodeling. Due to her high risk status. I do recommend she follows up in 2 weeks to confirm the site is still healed. She will follow-up with Dr. Zavala. The importance of keeping the left heel offloaded at all times was stressed in great detail with the patient again today. She has been noncompliant in this so far. At all times while seated or laying down the patient is to have the area completely offloaded with nothing but air touching the ulcer site. She says she understands this. LEAS and venous duplex studies show incompetence of left greater saphenous vein and she was seen by vascular surgeon who did not feel that intervention was necessary to heal her wound.All questions were answered to the patient's satisfaction today. All signs and symptoms of local and systemic infection were discussed with the patient and she was instructed to go to the emergency room immediately should she notice any of these. She was also advised to keep the skin integrity intact by washing gently with soap and water and moisturizing daily with lotion.
--- NOTE | 2019-01-06 11:26 | PN.PCM_ITS ---
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 Current Visit: No Code(s): M33.20 - Polymyositis, organ involvement unspecified; M35.9 - Systemic involvement of connective tissue, unspecified (3) Diabetes type 2, controlled Status: Chronic Current Visit: No Qualifiers: Code(s): E11.9 - Type 2 diabetes mellitus without complications (4) Delayed wound healing Status: Resolved Current Visit: Yes Code(s): T14.8XXD - Other injury of unspecified body region, subsequent encounter Type of Wound Date of Service: 01/06/19 Chief Complaint: Follow-up on left heel ulcer History of Wound: 68-year-old white female with an autoimmune disorder is on steroids and plasma infusions fell and injured her left shoulder left upper arm humerus and left foot ankle. The fall occurred May 312018 she finally had surgery on June 142018 with plates and screws in the left ankle area she has been casted 3 times and after the last cast has developed a decubitus ulcer on her left heel from pressure. Patient was seen for all of these injuries and surgeries up in [place] and the [facility]. She says she was sent to the wound healing center at request of her primary care physician. She is recently had [employer], advanced wound healing product, applications. She denies any drainage, increased pain, fever or chills or odor. Progress of Wound: very small opening appreciated - Physical Exam Vital Signs Temp Pulse Resp BP 98.9 F 104 H 18 146/68 H 12/24/18 13:42 12/24/18 13:42 12/24/18 13:42 12/24/18 13:42 General: Alert, Oriented x3, Cooperative, No apparent distress Extremities: Capillary Refill Less than 3 Seconds, No Calf Tenderness - Negative Shay and Rankin signs, Diminished Peripheral Pulses - DP pulses palpable and PT pulses nonpalpable, Edema - Mild lower extremity edema Skin: Ulcer/ Wound - Ulcer to left posterior heel very slightly open still. Base is mostly completely granular tissue with some slight minor hyperkeratotic tissue and slough. There are no surrounding signs of local infection appreciated. Wound Measurements and Assessment WC - Nurse 2 - General Ulcer CM Notes Start: 12/09/18 10:37 Freq: Status: Active Protocol: Activity Type Activity Date Activity User E-Sign Co-Sign Detail Recorded Client Recorded Date Recorded By Document 01/06/19 10:38 [id number] 01/06/19 10:42 01/06/19 10:38 Pain Scale: 0-10 Numeric [Pain] -Is Patient Pain Free? Yes Musculoskeletal: Tenderness - Very minor tenderness with ulcer site manipulation Neurological: Sensory exam intact to light touch and pain - With some altered lower extremity sensation Psych/Mental Status: Normal Affect, Appropriate Debridement Note Post-Debridement Measurements/Treatment WC - Nurse 2 - General Ulcer CM Notes Start: 12/09/18 10:37 Freq: Status: Active Protocol: Activity Type Activity Date Activity User E-Sign Co-Sign Detail Recorded Client Recorded Date Recorded By Document 12/09/18 11:17 AN [id number] 12/09/18 11:21 AN Document 12/15/18 14:18 AN [id number] 12/15/18 14:26 AN Document 12/24/18 14:16 DV [id number] 12/24/18 14:18 DV Document 01/06/19 10:38 [id number] 01/06/19 10:42 12/09/18 12/15/18 12/24/18 11:17 14:18 14:16 Wound Center Nurse 2 #1 left heel -Time 11:18 14:25 14:17 -Correct Patient Yes Yes Yes -Correct Side, Site, Position Yes Yes Yes -Correct Procedure Yes Yes No -Procedure Performed Yes Yes No -Type of Procedure Debridement Debridement -Clinical Debridement Subcutaneous Subcutaneous -Post Debridement Size (cm) - Length 0.7 0.6 0 -Post Debridement Size (cm) - Width 1.3 1.3 0 -Post Debridement Size (cm) - Depth 0.3 0.2 0 -Total Square Cm 0.91 0.78 0 -Wound/Ulcer Outcome Not Healed Not Healed Healed- Epithelialized -Ulcer Cleansing Rinsed/ Rinsed/ Irrigated with Irrigated with Saline Saline -Foul Odor after Cleansing No No -Bioengineered Tissue No Yes -Type of bioengineered Tissue NU-SHIELD NU-SHIELD -Expiration Date 08/31/23 -Product Lot Number [id number] -Percent Used 100 -Saline Lot Number [id number] -Bleeding Controlled with Pressure -Offloading No -Treatment Response Procedure Tolerated Well Pain Scale: 0-10 Numeric Is Patient Pain Free? Yes Yes Yes 01/06/19 10:38 Wound Center Nurse 2 #1 left heel -Time -Correct Patient -Correct Side, Site, Position -Correct Procedure -Procedure Performed -Type of Procedure -Clinical Debridement -Post Debridement Size (cm) - Length -Post Debridement Size (cm) - Width -Post Debridement Size (cm) - Depth -Total Square Cm -Wound/Ulcer Outcome -Ulcer Cleansing -Foul Odor after Cleansing -Bioengineered Tissue -Type of bioengineered Tissue -Expiration Date -Product Lot Number -Percent Used -Saline Lot Number -Bleeding Controlled with -Offloading -Treatment Response Pain Scale: 0-10 Numeric Is Patient Pain Free? Yes Wound debrided: Left posterior heel Laterality: Left Type of Debridement: Selective debridement Anesthesia Used: 4% Lidocaine Solution Depth: Down to and including healthy tissue Percentage of wound debrided: 100 Instrument Used: #15 blade Tissue Removed: Fibrin, hyperkeratotic tissue Severity: Limited To Skin Breakdown Amount of bleeding with debridement: Mild Bleeding Controlled with: Pressure Patient tolerated procedure well Assessment/Plan Active Problems Type 2 diabetes mellitus with diabetic polyneuropathy (Chronic) Chronic ulcer of left foot with fat layer exposed (Chronic) Assessment: Decubitus ulcer left heel unstageable-healed today. Su grade 1 diabetic foot ulcer with fat layer exposed, no infection-healed today. Polymyositis significant past medical history. Fractured left ankle remote Plan: Patient was carefully examined and evaluated again today. Very mild selective debridement was performed as noted in the clinical panel. The site was dressed with Summer followed by dry sterile dressing. She is to change her dressing in this manner on a daily basis. The importance of keeping the left heel offloaded at all times was stressed in great detail with the patient again today. She has been noncompliant in this so far. At all times while seated or laying down the patient is to have the area completely offloaded with nothing but air touching the ulcer site. She says she understands this. 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 We can consider x-rays of the heel in the future if needed but there is no current sign of infection. All questions were answered to the patient's satisfaction today. All signs and symptoms of local and systemic infection were discussed with the patient and she was instructed to go to the emergency room immediately should she notice any of these. She is to follow ba ck up at the wound healing center in 1 week, but was instructed to follow-up sooner if needed.
== END 2019-01-08 23:59 ==
LOC: WC 10:15
PROVIDERS: Family Provider Internal Medicine; PCP Internal Medicine; Referring Provider Podiatrist; Visit Provider Podiatrist
DX: E11.621 Type 2 diabetes mellitus with foot ulcer (principal); L89.623 Pressure ulcer of left heel, stage 3; M33.29 Polymyositis with other organ involvement; D89.89 Other specified disorders involving the immune mechanism, not elsewhere classified; R60.0 Localized edema; Z91.19 Patient's noncompliance with other medical treatment and regimen; E11.42 Type 2 diabetes mellitus with diabetic polyneuropathy
CPT/HCPCS: 15275; 97597; 99213; Q4160; G0463

== ENCOUNTER 2019-01-13 09:52 | Outpatient (RCR) | payer MEDICARE, OTHER, SELFPAY ==
[2018-12-24 13:42] VITALS: BMI 27.4
[2019-01-09 00:38] VITALS: BP 146/68; PULSE 104; RESP 18; TEMP 37.2
[2019-01-13 11:13] VITALS: BP 134/73; PULSE 108; RESP 18; BMI 27.4
--- NOTE | 2019-01-13 12:44 | PCM.WC.PN ---
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 Current Visit: No Code(s): M33.20 - Polymyositis, organ involvement unspecified; M35.9 - Systemic involvement of connective tissue, unspecified (3) Diabetes type 2, controlled Status: Chronic Current Visit: No Qualifiers: Code(s): E11.9 - Type 2 diabetes mellitus without complications (4) Delayed wound healing Status: Resolved Current Visit: No Code(s): T14.8XXD - Other injury of unspecified body region, subsequent encounter Type of Wound Date of Service: 01/13/19 Chief Complaint: Follow-up on left heel ulcer History of Wound: 68-year-old white female with an autoimmune disorder is on steroids and plasma infusions fell and injured her left shoulder left upper arm humerus and left foot ankle. The fall occurred May 312018 she finally had surgery on June 142018 with plates and screws in the left ankle area she has been casted 3 times and after the last cast has developed a decubitus ulcer on her left heel from pressure. Patient was seen for all of these injuries and surgeries up in [place] and the [facility]. She says she was sent to the wound healing center at request of her primary care physician. She is recently had [employer], advanced wound healing product, applications. She denies any drainage, increased pain, fever or chills or odor. Progress of Wound: Ulcer site appears healed today with no signs of infection. - Physical Exam Vital Signs Temp Pulse Resp BP 98.9 F 108 H 18 134/73 H 01/09/19 00:38 01/13/19 11:13 01/13/19 11:13 01/13/19 11:13 General: Alert, Oriented x3, Cooperative, No apparent distress Extremities: Capillary Refill Less than 3 Seconds, No Calf Tenderness, Diminished Peripheral Pulses, Edema Skin: Ulcer/ Wound - Ulcer site to left posterior heel appears healed today with no signs of surrounding infection noted. Wound Measurements and Assessment WC - Nurse 1 - General Ulcer Measurement Start: 01/13/19 11:13 Freq: Status: Active Protocol: Activity Type Activity Date Activity User E-Sign Co-Sign Detail Recorded Client Recorded Date Recorded By Document 01/13/19 11:13 [email or web address] [id number] 01/13/19 11:21 01/13/19 11:13 Wound Center Nurse 1 [Ulcer Assessment] #1 left heel -Combined with other wound No -Current Size (cm) - Length 0.1 -Current Size (cm) - Width 0.1 -Current Size (cm) - Depth 0.1 -Total Square Cm 0.01 -Photo Taken No -Epithelialization Large 67-100% -Tunneling No -Undermining/Tunneling No -Circular Undermining No -Exudate Amt None Present -Wound Margin Indistinct, Non -Visible -Granulation Amt None Present (0 %) -Slough/Fibrin Yes -Necrosis Amt Medium (34-66%) -Necrotic Tissue Type Adherent Slough -Structure Exposed N/A -Texture (Deepa-wound Skin Appearance) Assessed,Callus -Moisture (Deepa-wound Skin Appearance Assessed,Dry/ ) Scaly -Color (Deepa-wound Skin Appearance) Assessed -Temperature (Deepa-wound Skin No Abnormality Appearance) (Pt Warm) -Tenderness on Palpation (Deepa-wound No Skin Appearance) -Ulcer Cleansing Rinsed/ Irrigated with Saline -Foul Odor after Cleansing No -Anesthetic Used 5% Lidocaine Gel [Edema Assessment] -Lower Limb Edema Present No WC - Nurse 2 - General Ulcer CM Notes Start: 01/13/19 11:13 Freq: Status: Active Protocol: Activity Type Activity Date Activity User E-Sign Co-Sign Detail Recorded Client Recorded Date Recorded By Document 01/13/19 11:31 AN [id number] 01/13/19 11:31 AN 01/13/19 11:31 Pain Scale: 0-10 Numeric [Pain] -Is Patient Pain Free? Yes Musculoskeletal: No Tenderness to Palpation of Joints or Extremities Neurological: Sensory exam intact to light touch and pain - With some altered lower extremity sensation Psych/Mental Status: Normal Affect, Appropriate Debridement Note Post-Debridement Measurements/Treatment WC - Nurse 2 - General Ulcer CM Notes Start: 01/13/19 11:13 Freq: Status: Active Protocol: Activity Type Activity Date Activity User E-Sign Co-Sign Detail Recorded Client Recorded Date Recorded By Document 01/13/19 11:31 AN [id number] 01/13/19 11:31 AN 01/13/19 11:31 Pain Scale: 0-10 Numeric Is Patient Pain Free? Yes No debridement was completed today Assessment/Plan Assessment: Decubitus ulcer left heel unstageable-healed today. Su grade 1 diabetic foot ulcer with fat layer exposed, no infection-healed today. Polymyositis significant past medical history. Fractured left ankle remote Plan: Patient was carefully examined and evaluated again today. No debridement was performed today. Patient appears to be healed with no signs of surrounding local infection. Even though she is currently healed, the importance of keeping the left heel offloaded while the new skin continues to strengthen and heel was stressed. She has been noncompliant in this so far. All questions were answered to the patient's satisfaction today. All signs and symptoms of local and systemic infection were discussed with the patient and she was instructed to go to the emergency room immediately should she notice any of these. At this time, the patient will be discharged from the wound healing center, but was instructed to follow-up sooner if needed.
== END 2019-02-07 23:59 ==
LOC: WC 09:52
PROVIDERS: Family Provider Internal Medicine; PCP Internal Medicine; Referring Provider Podiatrist; Visit Provider Podiatrist
DX: Z09 Encounter for follow-up examination after completed treatment for conditions other than malignant neoplasm (principal); M33.20 Polymyositis, organ involvement unspecified; Z91.19 Patient's noncompliance with other medical treatment and regimen; E11.9 Type 2 diabetes mellitus without complications
CPT/HCPCS: 99212; G0463